=== PATIENT | male | born 1970 | race Hispanic/Latino ===

== ENCOUNTER 2019-09-07 05:54 | Emergency (ER) | payer OTHER ==
--- OUTSIDE RECORDS SUMMARY | 2019-09-07 05:55 | XMS REPORT ---
:1970 [facility] [address] [place] [address] Dr. Avalos [address] [place] [id number] Care Team Providers Name Role Phone Unavailable Unavailable Unavailable Problems This patient has no known problems. Allergies, Adverse Reactions, Alerts This patient has no known allergies or adverse reactions. Medications This patient has no known medications.
[2019-09-07] MEDS ORDERED: KETOROLAC 30 MG/ML INJ ONE (06:12)
[2019-09-07 06:18] LABS: Absolute Lymphocytes (CBC) 2.1 K/uL (0.7-4.9); Basophils % 0.5 % (0-1.3); Hematocrit 40.2 % (39.6-49.0); Lymphocytes % 27.4 % (15.3-44.8); MPV 7.6 fL (7.6-11.3); RBC Red Blood Cell Count 5.11 M/uL (4.33-5.43)
[2019-09-07 06:33] LABS: Protime INR 1.11
[2019-09-07 06:40] LABS: ALT/SGPT 32 U/L (12-78); AST/SGOT 20 U/L (15-37); Albumin 3.4 g/dL (3.4-5.0); Alkaline Phosphatase 103 U/L (45-117); BUN Blood Urea Nitrogen 24 mg/dL (7-18); Bicarbonate 25 mmol/L (21-32); Bilirubin Direct 0.2 mg/dL (0-0.2); Bilirubin Total 0.6 mg/dL (0.2-1.0); Glucose Level 107 mg/dL (74-106); Magnesium 2.2 mg/dL (1.8-2.4); NT PRO-BNP 17 pg/mL (<125); Potassium 3.8 mmol/L (3.5-5.1); Protein, Total 8.1 g/dL (6.4-8.2); Sodium Level 140 mmol/L (136-145); Troponin (Emerg Dept Use Only) < 0.02 ng/mL (0.0-0.045)
--- NOTE | 2019-09-07 06:51 | RAD REPORT ---
EXAM DESCRIPTION: RAD - Chest Single View - 09/07/2019 6:21 am CLINICAL HISTORY: CHEST PAIN Chest pain. COMPARISON: Chest Pa And Lat (2 Views) dated 06/05/2017; Chest Pa And Lat (2 Views) dated 01/16/2016 FINDINGS: Portable technique limits examination quality. The lungs are grossly clear. The heart is normal in size. No displaced fractures. IMPRESSION: No acute intrathoracic process suspected.
[2019-09-07] MEDS ORDERED: FENTANYL CITR 100 MCG/2 ML ONE (07:35)
--- NOTE | 2019-09-07 07:37 | ER ---
Nurse's Notes [facility] Name: Norman Craft Age: 49 yrs Sex: Male : 1970 Arrival Date: 09/07/2019 Time: 05:55 Bed 5 Private MD: Diagnosis: Chondrocostal junction syndrome [Tietze];Other chest pain Presentation: 09/07 05:55 Presenting complaint: Patient states: that since 2200 last night he has been having fc sharp chest pain that is constant. Denies any nausea, vomiting or shortness of breath. Pt states that pain is worse with movement and touching the area. Has seen DR Jones in the past 6 months and had a normal stress test. Transition of care: patient was not received from another setting of care. Onset of symptoms was September 06, 2019 at 22:00. Risk Assessment: Do you want to hurt yourself or someone else? Patient reports no desire to harm self or others. Initial Sepsis Screen: Does the patient meet any 2 criteria? No. Patient's initial sepsis screen is negative. Does the patient have a suspected source of infection? No. Patient's initial sepsis screen is negative. Care prior to arrival: None. 05:55 Method Of Arrival: Ambulatory 05:55 Acuity: ROSY 3 fc Historical: - Allergies: 06:09 No Known Allergies; fc - Home Meds: 06:09 Crestor 10 mg oral tab 1 tab every other day [Active]; fc - PMHx: 06:09 GERD; High Cholesterol; fc - PSHx: 06:09 Hernia repair; fc - Immunization history:: Last tetanus immunization: up to date Flu vaccine is up to date. - Coronavirus screen:: The patient has NOT traveled to [place], [place], or [place] in the past 14 days. Proceed with normal triage process as indicated. The patient has NOT had contact with known/suspected case of Coronavirus? Proceed with normal triage procedures. - Social history:: Smoking status: Patient denies any tobacco usage or history of. Patient uses alcohol, occasionally. Patient/guardian denies using street drugs. - Ebola Screening: : Patient negative for fever greater than or equal to 101.5 degrees Fahrenheit, and additional compatible Ebola Virus Disease symptoms Patient denies exposure to infectious person Patient denies travel to an Ebola-affected area in the 21 days before illness onset. Screenin:55 Abuse screen: Denies threats or abuse. Nutritional screening: No deficits noted. fc Tuberculosis screening: No symptoms or risk factors identified. Fall Risk None identified. Assessment: 06:00 General: Appears in no apparent distress. comfortable, Behavior is calm, cooperative, aa1 appropriate for age. Pain: Complains of pain in chest Pain does not radiate. Pain currently is 5 out of 10 on a pain scale. at worst was 10 out of 10 on a pain scale. Quality of pain is described as sharp, stabbing, Pain began 1 day ago. Is intermittent. Neuro: Level of Consciousness is awake, alert, obeys commands, Oriented to person, place, time, situation, Moves all extremities. Full function Speech is normal. Cardiovascular: Reports chest pain, Denies diaphoresis, nausea, palpitations, shortness of breath, Heart tones S1 S2 present Capillary refill < 3 seconds Clubbing of nail beds is absent JVD is absent Rhythm is regular. Respiratory: Reports pain with movement pain with respiration Airway is patent Respiratory effort is even, unlabored, Respiratory pattern is regular, symmetrical, Breath sounds are clear bilaterally. GI: No signs and/or symptoms were reported involving the gastrointestinal system. : No signs and/or symptoms were reported regarding the genitourinary system. EENT: No signs and/or symptoms were reported regarding the EENT system. Derm: Skin is intact, is healthy with good turgor, Skin is pink, warm \T\ dry. Musculoskeletal: Circulation, motion, and sensation intact. Capillary refill < 3 seconds. 06:52 Reassessment: Patient appears in no apparent distress at this time. Patient and/or aa1 family updated on plan of care and expected duration. Pain level reassessed. Patient is alert, oriented x 3, equal unlabored respirations, skin warm/dry/pink. Awaiting test results. Vital Signs: 05:55 BP 147 / 105; Pulse 89; Resp 18; Temp 97.0(TE); Pulse Ox 99% on R/A; Weight 77.11 kg fc (R); Height 5 ft. 7 in. (170.18 cm) (R); Pain 5/10; 06:52 BP 127 / 81; Pulse 76; Resp 16; Pulse Ox 98% on R/A; aa1 05:55 Body Mass Index 26.63 (77.11 kg, 170.18 cm) ED Course: 05:55 Patient arrived in ED. cl3 05:55 Arm band placed on Patient placed in an exam room, on a stretcher. fc 05:55 Patient has correct armband on for positive identification. Placed in gown. Bed in low fc position. Call light in reach. Side rails up X 1. rotoprinter on. Pulse ox on. NIBP on. 05:55 No provider procedures requiring assistance completed. 05:56 Steve Frankel PA is PHCP. jr8 05:56 Dilip Koroma MD is Attending Physician. jr8 06:06 Triage completed. fc 06:10 Initial lab(s) drawn, by me, sent to lab. EKG done, by ED staff, reviewed by Dilip Koroma MD. Inserted saline lock: 20 gauge in right antecubital area, using aseptic technique. Blood collected. Patient maintains SpO2 saturation greater than 95% on room air. 07:16 Basic Metabolic Panel Sent. sv 07:16 CBC with Diff Sent. sv 07:16 LFT's Sent. sv 07:16 Magnesium Sent. sv 07:17 NT PRO-BNP Sent. sv 07:17 PT-INR Sent. sv 07:17 Troponin (emerg Dept Use Only) Sent. sv 07:17 XRAY Chest (1 view) Sent. sv 07:36 Francis Pineda, RN is Primary Nurse. sg 08:00 IV discontinued, intact, bleeding controlled, No redness/swelling at site. Pressure sg dressing applied. Administered Medications: 06:12 Drug: TORadol 30 mg Route: IVP; Site: right antecubital; jd3 07:36 Drug: fentaNYL (PF) 50 mcg Route: IVP; Site: right antecubital; sg Outcome: 07:37 Discharge ordered by . jr8 08:00 Discharged to home ambulatory, with family. sg 08:00 Condition: good 08:00 Discharge instructions given to patient, Instructed on discharge instructions, follow up and referral plans. medication usage, safety practices, Demonstrated understanding of instructions, follow-up care, medications, Prescriptions given X 1. 08:08 Patient left the ED. sg Signatures: Roseline Moise RN RN Francis Pineda RN RN Lupis Leggett RN RN aa1 Siri Cortez RN RN fc Steve Frankel PA PA jr8 Ken Mar RN RN jd3 Joya Jaffe cl3
--- NOTE | 2019-09-07 07:38 | EDPHYS ---
Physician Documentation [facility] Name: Norman Craft Age: 49 yrs Sex: Male : 1970 Arrival Date: 09/07/2019 Time: 05:55 Bed 5 Private MD: ED Physician Dilip Koroma HPI: 09/07 06:18 This 49 yrs old Male presents to ER via Ambulatory with complaints of Chest jr8 Pain. 06:18 The patient or guardian reports chest pain that is located primarily in the anterior jr8 chest wall, left. Onset: acutely, last night, at 22:00. The pain does not radiate. Associated signs and symptoms: The patient has no apparent associated signs or symptoms. The chest pain is described as sharp, stabbing. Duration: The patient or guardian reports multiple episodes. Modifying factors: The symptoms are alleviated by remaining still, the symptoms are aggravated by movement. Severity of pain: At its worst the pain was moderate in the emergency department the pain is unchanged. The patient has not experienced similar symptoms in the past. The patient has not recently seen a physician. Denies trauma or heavy physical activity . Historical: - Allergies: 06:09 No Known Allergies; fc - Home Meds: 06:09 Crestor 10 mg oral tab 1 tab every other day [Active]; fc - PMHx: 06:09 GERD; High Cholesterol; fc - PSHx: 06:09 Hernia repair; fc - Immunization history:: Last tetanus immunization: up to date Flu vaccine is up to date. - Coronavirus screen:: The patient has NOT traveled to [place], [place], or [place] in the past 14 days. Proceed with normal triage process as indicated. The patient has NOT had contact with known/suspected case of Coronavirus? Proceed with normal triage procedures. - Social history:: Smoking status: Patient denies any tobacco usage or history of. Patient uses alcohol, occasionally. Patient/guardian denies using street drugs. - Ebola Screening: : Patient negative for fever greater than or equal to 101.5 degrees Fahrenheit, and additional compatible Ebola Virus Disease symptoms Patient denies exposure to infectious person Patient denies travel to an Ebola-affected area in the 21 days before illness onset. ROS: 06:18 Eyes: Negative for injury, pain, redness, and discharge, ENT: Negative for injury, jr8 pain, and discharge, Neck: Negative for injury, pain, and swelling, Respiratory: Negative for shortness of breath, cough, wheezing, and pleuritic chest pain, Abdomen/GI: Negative for abdominal pain, nausea, vomiting, diarrhea, and constipation, Back: Negative for injury and pain, MS/Extremity: Negative for injury and deformity, Skin: Negative for injury, rash, and discoloration, Neuro: Negative for headache, weakness, numbness, tingling, and seizure. 06:18 Cardiovascular: Positive for chest pain, with movement, Negative for edema, orthopnea, palpitations, paroxysmal nocturnal dyspnea. Exam: 06:18 Eyes: Pupils equal round and reactive to light, extra-ocular motions intact. Lids and jr8 lashes normal. Conjunctiva and sclera are non-icteric and not injected. Cornea within normal limits. Periorbital areas with no swelling, redness, or edema. ENT: Nares patent. No nasal discharge, no septal abnormalities noted. Tympanic membranes are normal and external auditory canals are clear. Oropharynx with no redness, swelling, or masses, exudates, or evidence of obstruction, uvula midline. Mucous membranes moist. Neck: Trachea midline, no thyromegaly or masses palpated, and no cervical lymphadenopathy. Supple, full range of motion without nuchal rigidity, or vertebral point tenderness. No Meningismus. Cardiovascular: Regular rate and rhythm with a normal S1 and S2. No gallops, murmurs, or rubs. Normal PMI, no JVD. No pulse deficits. Respiratory: Lungs have equal breath sounds bilaterally, clear to auscultation and percussion. No rales, rhonchi or wheezes noted. No increased work of breathing, no retractions or nasal flaring. Abdomen/GI: Soft, non-tender, with normal bowel sounds. No distension or tympany. No guarding or rebound. No evidence of tenderness throughout. Back: No spinal tenderness. No costovertebral tenderness. Full range of motion. Skin: Warm, dry with normal turgor. Normal color with no rashes, no lesions, and no evidence of cellulitis. MS/ Extremity: Pulses equal, no cyanosis. Neurovascular intact. Full, normal range of motion. Neuro: Awake and alert, GCS 15, oriented to person, place, time, and situation. Cranial nerves II-XII grossly intact. Motor strength 5/5 in all extremities. Sensory grossly intact. Cerebellar exam normal. Normal gait. 06:18 Chest/axilla: Inspection: normal, Palpation: tenderness, that is moderate, of the left sternal border , that partially reproduces the patient's complaints. 06:18 ECG was reviewed by the Attending Physician. jr8 Vital Signs: 05:55 BP 147 / 105; Pulse 89; Resp 18; Temp 97.0(TE); Pulse Ox 99% on R/A; Weight 77.11 kg fc (R); Height 5 ft. 7 in. (170.18 cm) (R); Pain 5/10; 06:52 BP 127 / 81; Pulse 76; Resp 16; Pulse Ox 98% on R/A; aa1 05:55 Body Mass Index 26.63 (77.11 kg, 170.18 cm) fc MDM: 05:56 Patient medically screened. 8 07:33 Differential diagnosis: abnormal EKG, acute myocardial infarction, acute pericarditis, jr8 coronary artery disease chest wall pain, cholecystitis, Cholelithiasis costochondritis, esophagitis, gastritis, gastroesophageal reflux disease (GERD), myocarditis, pancreatitis, peptic ulcer disease, pleurisy, pneumonia, pneumothorax, pulmonary embolus, stable angina, thoracic aortic disection, unstable angina, [place]. Data reviewed: vital signs, nurses notes, lab test result(s), EKG, radiologic studies, plain films. Data interpreted: Pulse oximetry: on room air is 98 %. Interpretation: normal. Counseling: I had a detailed discussion with the patient and/or guardian regarding: the historical points, exam findings, and any diagnostic results supporting the discharge/admit diagnosis, lab results, radiology results. ED course: Patient had stress test 5 months ago and was cleared by cardiology for next 5 years. Pain with motion and palpation to left sternal region. Labs and imaging unremarkable. Most likely inflammatory in origin at this time. Will put on NSAID based product and see how he does. Knows to come back if worse or if something were to change . 09/07 06:04 Order name: Basic Metabolic Panel [facility] 09/07 06:04 Order name: CBC with Diff 8 09/07 06:04 Order name: LFT's [facility] 09/07 06:04 Order name: Magnesium [facility] 09/07 06:04 Order name: NT PRO-BNP 09/07 06:04 Order name: PT-INR 09/07 06:04 Order name: Troponin (emerg Dept Use Only) 09/07 06:21 Order name: CBC with Automated Diff; Complete Time: 06:24 EDMS 09/07 06:39 Order name: Protime (+INR); Complete Time: 07:00 EDMS 09/07 06:41 Order name: Basic Metabolic Panel; Complete Time: 07:00 EDMS 09/07 06:41 Order name: Liver (Hepatic) Function; Complete Time: 07:00 EDMS 09/07 06:41 Order name: Troponin (Emerg Dept Use Only); Complete Time: 07:00 EDMS 09/07 06:41 Order name: NT PRO-BNP; Complete Time: 07:00 EDMS 09/07 06:41 Order name: Magnesium; Complete Time: 07:00 EDMS 09/07 06:04 Order name: XRAY Chest (1 view) 09/07 06:04 Order name: EKG; Complete Time: 06:05 09/07 06:04 Order name: Cardiac monitoring; Complete Time: 06:07 09/07 06:04 Order name: EKG - Nurse/Tech; Complete Time: 06:07 09/07 06:04 Order name: IV Saline Lock; Complete Time: 06:07 09/07 06:04 Order name: Labs collected and sent; Complete Time: 06:07 09/07 06:04 Order name: O2 Per Protocol; Complete Time: 06:07 09/07 06:04 Order name: O2 Sat Monitoring; Complete Time: 06:07 09/07 06:52 Order name: RAD; Complete Time: 07:00 EDMS EC:18 Rate is 85 beats/min. Rhythm is regular, Normal Sinus Rhythm. QRS [place] is Normal. [place] jr8 interval is prolonged at 220 msec. QRS interval is normal at 74 msec. QT interval is normal at 426 msec. No Q waves. T waves are Normal. No ST changes noted. Clinical impression: 1st degree heart block. Interpreted by me. Reviewed by me. Administered Medications: 06:12 Drug: TORadol 30 mg Route: IVP; Site: right antecubital; jd3 07:36 Drug: fentaNYL (PF) 50 mcg Route: IVP; Site: right antecubital; sg Disposition: 10:18 Co-signature as Attending Physician, Dilip Koroma MD I agree with the assessment and tw4 plan of care. Disposition: 09/07/19 07:37 Discharged to Home. Impression: Chondrocostal junction syndrome [Tietze], Other chest pain. - Condition is Stable. - Discharge Instructions: Nonspecific Chest Pain, Chest Wall Pain, Costochondritis. - Prescriptions for Ibuprofen 800 mg Oral Tablet - take 1 tablet by ORAL route every 12 hours As needed take with food; 20 tablet. - Work release form, Medication Reconciliation Form, Thank You Letter, Antibiotic Education, Prescription Opioid Use form. - Follow up: Private Physician; When: 5 - 6 days; Reason: Recheck today's complaints, Continuance of care, Re-evaluation by your physician. - Problem is new. - Symptoms have improved. - Notes: Take pepcid daily or prescribed GERD medication with Ibuprofen Signatures: Dispatcher [employer] EDMS Francis Pineda RN RN Siri Cortez RN RN fc Roszak, Josh, PA PA jr8 Ken Mar RN RN jd3 Wadley, Terrence, MD MD tw4 Corrections: (The following items were deleted from the chart) 08:08 07:37 09/07/2019 07:37 Discharged to Home. Impression: Chondrocostal junction syndrome sg [Tietze]; Other chest pain. Condition is Stable. Forms are Medication Reconciliation Form, Thank You Letter, Antibiotic Education, Prescription Opioid Use. Follow up: Private Physician; When: 5 - 6 days; Reason: Recheck today's complaints, Continuance of care, Re-evaluation by your physician. Problem is new. Symptoms have improved. jr8
--- NOTE | 2019-09-07 08:45 | EKG ---
Test Date: 2019-09-07 Test Time: 06:06:34 Senior Care Manager: TOSIN MEASUREMENT RESULTS: Intervals: Rate: 85 UT: 220 QRSD: 74 QT: 358 QTc: 426 [place]: P: 56 UT: 220 QRS: 60 T: 44 INTERPRETIVE STATEMENTS: Sinus rhythm with 1st degree AV block Otherwise normal ECG Compared to ECG 05/03/2004 08:58:00 No significant changes Electronically Signed On 09-07-19 08:44:55 SENIOR SYSTEMS ENGINEER by Heraclio Osborn
[2019-09-09 03:19] VITALS: TEMP 97
[2019-09-09 03:25] VITALS: BP 127/81; O2SAT 98
== END 2019-09-07 08:08 | disposition home or self-care (01) ==
LOC: ER 05:54
DX: M94.0 Chondrocostal junction syndrome [Tietze] (principal); E78.00 Pure hypercholesterolemia, unspecified
CPT/HCPCS: 93005; 85025; 80048; 36415; 83735; 85610; 80076; 84484; 83880; 71045; 96375; 96374; 99285; J3010

== ENCOUNTER 2024-01-15 07:44 | Observation (INO) | payer OTHER ==
--- OUTSIDE RECORDS SUMMARY | 2024-01-15 07:48 | XMS REPORT | Clinical Summary ---
Author Name Unknown Organization [facility] Address [address] [place] [address] Care Team Providers Care Principal Solutions Architect Name Role Phone Kendall Orantes Rp, MD Primary Care Provider [phone] Nicole Louis MD Unavailable [phone] Enrique Connolly MD Unavailable [phone] Tanesha Silveira MD Unavailable [phone] Sayda Pritchett MD Unavailable Allergies No known active allergies Medications Medication Sig Dispensed Refills Start Date End Date Status multivitamin (THERAGRAN) tablet Take 1 tablet by mouth daily. Active omeprazole (PriLOSEC) 20 mg capsule Take 1 capsule (20 mg) by mouth daily. Active rosuvastatin (CRESTOR) 10 mg tablet Take 1 tablet (10 mg) by mouth daily. Active difluprednate 0.05 % eye drop 3 (three) times a day. 10/17/2022 12/25/2023 Discontinued tobramycin-dexAME THasone (TOBRADEX) 0.3%-0.1% ophthalmic suspension Administer 1 drop to the right eye 4 (four) times a day. 03/08/2023 12/25/2023 Discontinued Active Problems Problem Noted Date Diagnosed Date Monoclonal gammopathy 10/01/2018 Encounters Date Type Department Care Team Description 12/25/2023 3:20 PM CDT Follow-Up [facility] - Genitourinary Oncology [address] [place], [place] [id number] Kendall Orantes Rp, MD Monoclonal gammopathy 12/25/2023 Travel 05/07/2023 Orders Only MD [facility] [place] [address] [place] [address] Radha Khan APRN Monoclonal gammopathy (Primary Dx) 05/06/2023 11:00 AM CDT Follow-Up MD [place] - Genitourinary Oncology [address] [place] [address] Kendall Orantes Rp, MD Fatigue (Primary Dx); Monoclonal gammopathy 05/06/2023 Travel after 01/15/2023 Surgical History Surgery Date Site/Laterality Comments COLONOSCOPY 03/29/2022 HERNIA REPAIR 07/28/2003 - 07/27/2004 UPPER GASTROINTESTINAL ENDOSCOPY 03/29/2022 Medical History Medical History Date Comments Hyperlipidemia 2018 Renal stone 2017 Family History Medical History Relation Name Comments Heart attack Father Breast cancer Paternal Aunt Relation Name Status Comments Father Mother Alive Paternal Aunt Social History Tobacco Use Types Packs/Day Years Used Date Smoking Tobacco: Never Smokeless Tobacco: Never Comments:pt smokes cigar 1 e very 6 months. Alcohol Use Standard Drinks/Week Comments Yes 12 (1 standard drink = 0.6 oz pu re alcohol) drinks once a week maybe Sex and Gender Information Value Date Recorded Sex Assigned at Male 01/04/2019 12:23 PM CDT Gender Identity Male 01/04/2019 12:23 PM CDT Sexual Orientation Straight 01/04/2019 12 :23 PM CDT Job Start Date Occupation Industry Not on file Not on file Not on file Obstetrics History Last Filed Vital Signs Vital Sign Reading Time Taken Comments Blood Pressure 150/75 12/25/2023 2:25 PM CDT Pulse 63 12/25/2023 2:25 PM CDT Temperature 36.7 C (98.1 F) 12/25/2023 2:25 PM CD T Respiratory Rate 18 12/25/2023 2:25 PM CDT Oxygen Saturation 99% 12/25/2023 2:25 PM CDT Inhaled Oxygen Concentration - - Weight 78.7 kg (173 lb 8 oz) 12/25/2023 2:25 PM CDT Height 167 cm (5' 5.75") 12/25/2023 2:26 PM CDT Body Mass Index 28.22 12/25/2023 2:25 PM CDT Plan of Treatment Upcoming Encounters Date Type Department Care Team (Late st Contact Info) Description 06/29/2024 10:30 AM PHILOSOPHY INSTRUCTOR Lab MD [place] [facility] [address] [facility] [address] [place] [address] Radha Khan, MIDDLE SCHOOL COUNSELOR [address] [place] [address] [email or web address] 06/29/2024 11:40 AM PHILOSOPHY INSTRUCTOR Follow-Up MD [place] - Genitourinary Oncology [address] [place] [address] Kendall Orantes Rp, MD [address] [place] [address] [email or web address] Health Maintenance Due Date Last Done Comments COVID-19 Vaccine ( season) 2023 Influenza Vaccine 03/28/2024 04/30/2019 Procedures Procedure Name Priority Date/Time Associated Diagnosis Comments FREE KAPPA/FREE LAMBDA RATIO Routine 12/25/2023 1:40 PM CDT Monoclonal gammopathy HEMOGLOBIN A1C Add-On 12/25/2023 1:40 PM CDT Monoclonal gammopathy TRANSFERRIN Add-On 12/25/2023 1:40 PM CDT Monoclonal gammopathy THYROID STIMULATING HORMONE Add-On 12/25/2023 1:40 PM CDT Monoclonal gammopathy PROSTATE SPECIFIC ANTIGEN Add-On 12/25/2023 1:40 PM CDT Monoclonal gammopathy LIPID PANEL Add-On 12/25/2023 1:40 PM CDT Monoclonal gammopathy FERRITIN Add-On 12/25/2023 1:40 PM CDT Monoclonal gammopathy FREE THYROXINE Add-On 12/25/2023 1:40 PM CDT Monoclonal gammopathy IMMUNOFIXATION ELECTROPHORESIS Routine 12/25/2023 1:40 PM CDT Monoclonal gammopathy PROTEIN ELECTROPHORESIS Routine 12/25/19 1:40 PM CDT Monoclonal gammopathy .CBC Routine 12/25/2023 1:40 PM CDT Monoclonal gammopathy IMMUNOGLOBULIN M Routine 12/25/2023 1:40 PM CDT Monoclonal gammopathy SERUM PROTEIN ELECTROPHORESIS WITH MICHEAL Routine 12/25/2023 1:40 PM CDT Monoclonal gammopathy IMMUNOGLOBULIN A Routine 12/25/2023 1:40 PM CDT Monoclonal gammopathy IGG SUBCLASSES Routine 12/25/2023 1:40 PM CDT Monoclonal gammopathy FREE LAMBDA LIGHT CHAIN Routine 12/25/19 1:40 PM CDT Monoclonal gammopathy FREE KAPPA LIGHT CHAIN Routine 1:40 PM CDT Monoclonal gammopathy BETA 2 MICROGLOBULIN Routine 12/25/2023 1:40 PM CDT Monoclonal gammopathy COMPREHENSIVE METABOLIC PANEL Routine 12/25/2023 1:40 PM CDT Monoclonal gammopathy COMPLETE BLOOD COUNT W/ DIFFERENTIAL Routine 12/25/2023 1:40 PM CDT Monoclonal gammopathy GENERAL LABORATORY ADD ON TEST STAT 05/06/2023 11:00 AM CDT Monoclonal gammopathy Fatigue DR. CHAU PROT ELECTROPHORESIS PATH REVIEW Routine 05/06/2023 10:[address] CHAU MICHEAL PATHE REVIEW Routine 05/06/20 10:12 AM CDT FREE KAPPA/FREE LAMBDA RATIO Routine 05/06/2023 10:12 AM CDT FREE THYROXINE Routine 05/06/2023 10:12 AM CDT THYROID STIMULATING HORMONE Routine 05/06/2023 10:12 AM CDT FERRITIN Routine 05/06/2023 10:12 AM CDT FRACTIONATED BILIRUBIN Routine 10:12 AM CDT Monoclonal gammopathy TOTAL PROTEIN Routine 05/06/2023 10:12 AM CDT Monoclonal gammopathy ASPARTATE AMINOTRANSFERASE Routine 05/06/2023 10:12 AM CDT Monoclonal gammopathy ALANINE AMINOTRANSFERASE Routine 023 10:12 AM CDT Monoclonal gammopathy ALKALINE PHOSPHATASE Routine 05/06/2023 10:12 AM CDT Monoclonal gammopathy ALBUMIN LEVEL Routine 05/06/2023 10:12 AM CDT Monoclonal gammopathy CALCIUM LEVEL Routine 05/06/2023 10:12 AM CDT Monoclonal gammopathy .GLOMERULAR FILTRATION RATE Routine 05/06/2023 10:12 AM CDT Monoclonal gammopathy SERUM CREATININE Routine 05/06/2023 10:1 2 AM CDT Monoclonal gammopathy ELECTROLYTE PANEL Routine 05/06/2023 10: 12 AM CDT Monoclonal gammopathy BLOOD UREA NITROGEN Routine 05/06/2023 1 0:12 AM CDT Monoclonal gammopathy GLUCOSE LEVEL Routine 05/06/2023 10:12 AM CDT Monoclonal gammopathy DIFFERENTIAL Routine 05/06/2023 10:12 AM CDT Monoclonal gammopathy .CBC Routine 05/06/2023 10:12 AM CDT Monoclonal gammopathy PROTEIN ELECTROPHORESIS Routine 05/06/20 10:12 AM CDT Monoclonal gammopathy SERUM PROTEIN ELECTROPHORESIS WITH MICHEAL Routine 05/06/2023 10:12 AM CDT Monoclonal gammopathy FREE KAPPA LIGHT CHAIN Routine 10:12 AM CDT Monoclonal gammopathy FREE LAMBDA LIGHT CHAIN Routine 05/06/20 10:12 AM CDT Monoclonal gammopathy BETA 2 MICROGLOBULIN Routine 05/06/2023 10:12 AM CDT Monoclonal gammopathy LACTATE DEHYDROGENASE Routine 05/06/2023 10:12 AM CDT Monoclonal gammopathy COMPREHENSIVE METABOLIC PANEL Routine 05/06/2023 10:12 AM CDT Monoclonal gammopathy COMPLETE BLOOD COUNT W/ DIFFERENTIAL Routine 05/06/2023 10:12 AM CDT Monoclonal gammopathy after 01/15/2023 Results * MICHEAL (12/25/2023 1:40 PM CDT) Serum Immunofixation 12/29/2023 4:57 PM CDT [facility] MICHEAL Path Interp The follow-up serum protein immunofixation electrophoretic patterns obtained with the use of antisera against IgG, IgA, IgM, bound kappa and bound lambda light chains are positive for an IgG kappa monoclonal gammopathy. 12/29/2023 4:57 PM CDT [facility] Pathologist Signature . 12/29/2023 4:57 PM CDT [facility] Blood Venipuncture / Unknown 12/25/2023 1:40 PM CDT 12/25/2023 1:48 PM CDT Radha Khan APRN LAB BLOOD ORDERABLES [facility] Unless otherwise noted, all lab tests performed by: Division of Pathology and Laboratory Medicine [address] [place] [phone] * (ABNORMAL) Serum Protein Electrophoresis (12/25/2023 1:40 PM CDT) Albumin 4.1 3.6 - 5.4 gm/dL 12/29/2023 4:55 PM CDT [facility] Alpha 1 Globulin 0.3 0.2 - 0.4 gm/dL 12/29/2023 4:55 PM CDT [facility] Alpha 2 Globulin 0.9 0.5 - 1.0 gm/dL 12/29/2023 4:55 PM CDT [facility] Beta Globulin 0.9 0.5 - 1.1 gm/dL 12/29/2023 4:55 PM CDT [facility] Gamma Globulin 1.7(H) 0.7 - 1.6 gm/dL 12/29/2023 4:55 PM CDT [facility] Paraprotein1 0.7(H) 0.0 - 0.0 gm/dL 12/29/2023 4:55 PM CDT [facility] SPE Path Interp The follow-up serum protein electrophoretic pattern shows that the M-protein peak is still present. 12/29/2023 4:55 PM CDT [facility] Pathologist Signature . 12/29/2023 4:55 PM CDT [facility] Total Protein 7.9 6.4 - 8.3 gm/dL 12/29/2023 4:55 PM CDT [facility] Blood Venipuncture / Unknown 12/25/2023 1:40 PM CDT 12/25/2023 1:48 PM CDT Radha Khan APRN LAB BLOOD ORDERABLES [facility] Unless otherwise noted, all lab tests performed by: Division of Pathology and Laboratory Medicine [facility] [place] [address] * (ABNORMAL) .CBC (12/25/2023 1:40 PM T) Only the most recent of2 resultswithin the time period is included. White Blood Cell 7.8 4.1 - 10.5 K/uL 12/25/2023 1:53 PM [facility] Red Blood Cell 5.16 4.30 - 6.04 M/uL 12/25/2023 1:53 PM [facility] Hemoglobin 13.6 13.3 - 17.4 g/dL 12/25/2023 1:53 PM [facility] Hematocrit 41.8 39.5 - 51.8 % 12/25/2023 1:53 PM [facility] Mean Cell Volume 81(L) 82 - 99 fL 12/25/2023 1:53 PM [facility] Mean Cell Hemoglobin 26.4(L) 26.6 - 33.2 pg 12/25/2023 1:53 PM [facility] Mean Cell Hemoglobin Concentration 32.5 31.1 - 35.2 g/dL 12/25/2023 1:53 PM [facility] RDW-SD 41.8 37.5 - 49.7 fL 12/25/2023 1:53 PM [facility] Red Cell Diameter Width 14.3 11.6 - 15.5 % 12/25/2023 1:53 PM [facility] Platelet 288 160 - 397 K/uL 12/25/2023 1:53 PM [facility] Mean Platelet Volume 9.4 9.1 - 12.6 fL 12/25/2023 1:53 PM [facility] Neutrophil % 67.7 43.2 - 72.7 % 12/25/2023 1:53 PM [facility] Lymphocyte % 24.1 16.8 - 46.2 % 12/25/2023 1:53 PM [facility] Monocyte % 6.1 5.1 - 12.5 % 12/25/2023 1:53 PM [facility] Eosinophil % 1.5 0.4 - 6.3 % 12/25/2023 1:53 PM [facility] Basophil % 0.5 0.2 - 1.4 % 12/25/2023 1:53 PM CDT [facility] IGRE % 0.1 0.1 - 1.5 % 12/25/2023 1:53 PM CDT [facility] Comment:The IGRE% includes M etamyelocytes, Myelocytes and Promyelocytes. Neutrophil Abs 5.28 1.95 - 7.25 K/uL 12/25/2023 1:53 PM CDT [facility] Lymphocyte Abs 1.88 1.01 - 3.24 K/uL 12/25/2023 1:53 PM CDT [facility] Monocyte Abs 0.48 0.24 - 0.85 K/uL 12/25/2023 1:53 PM CDT [facility] Eosinophil Abs 0.12 0.02 - 0.50 K/uL 12/25/2023 1:53 PM CDT [facility] Basophil Abs 0.04 0.02 - 0.09 K/uL 12/25/2023 1:53 PM CDT [facility] IG Abs 0.01 0.01 - 0.12 K/uL 12/25/2023 1:53 PM CDT [facility] Blood Venipuncture / Unknown 12/25/2023 1:40 PM CDT 12/25/2023 1:48 PM CDT Radha Khan APRN LAB BLOOD ORDERABLES Performing Organization Address [facility]/State/ZIP Co de Phone Number [facility] [address] [facility], [facility] [address] [place] [address] * (ABNORMAL) Free Franklin/Free Lambda Ratio (12/25/2023 1:40 PM CDT) Only the most recent of2 resultswithin the time period is included. Free Franklin/ Free Lambda Ratio 4.74(H) 0.26 - 1.65 12/26/2023 10:11 AM CDT [facility] Blood Peripheral blood specimen / Unknown Venipuncture / Unknown 12/25/2023 1:40 PM CDT 12/25/2023 1:48 PM CDT Radha Khan MIDDLE SCHOOL COUNSELOR LAB BLOOD ORDERABLES [facility] Unless otherwise noted, all lab tests performed by: Division of Pathology and Laboratory Medicine [address] [place] [id number] * IgG Subclasses (12/25/2023 1:40 PM CDT) IgG Total-Wren 1519 767 - 1590 mg/dL 12/29/2023 9:13 AM CDT [facility] IgG1-Wren 891 341 - 894 mg/dL 12/29/2023 9:13 AM CDT [facility] IgG2-Wren 375 171 - 632 mg/dL 12/29/2023 9:13 AM CDT [facility] IgG3-Wren 52.4 18.4 - 106.0 mg/dL 12/29/2023 9:13 AM CDT [facility] IgG4-Wren 15.9 2.4 - 121.0 mg/dL 12/29/2023 9:13 AM CDT [facility] Comment: Test Performed by: [facility] [address] [place] [address] Tow Motor Operator: Musa Kramer M.D. Ph.D.; CLIA# [id number] Blood Venipuncture / Unknown 12/25/2023 1:40 PM CDT 12/25/2023 1:48 PM CDT Radha Khan MIDDLE SCHOOL COUNSELOR LAB BLOOD ORDERABLES [facility] * Comprehensive Metabolic Panel (12/25/2023 1:40 PM CDT) Pathologist [facility] Bilirubin Total 0.6 0.0 - 1.2 mg/dL 12/25/2023 2:23 PM CDT [facility] Comment:Indocyanine Green (I CG) may cause falsely elevated bilirubin results. Total and direct bilirubin must not be measured from samples containing indocyanine green. False elevation of total bilirubin can be seen in patients with IgG concentrations above 28 g/L. eGFR 99 >=60 mL/min/1.7 3 sq. m 12/25/2023 2:23 PM [facility] Comment: The eGFRcr is calculated with the 2020 CKD-EPI creatinine equation using creatinine, patient's age, and sex for adults 18 years of age and older. Other factors, especially muscle mass, may affect accuracy and need to be considered. According to the Kidney Disease: Improving Global Outcomes (KDIGO) CKD Work Group 2012 Clinical Practice Guideline, chronic kidney disease (CKD) is defined as the abnormalities of kidney structure or function, present for more than 3 months, with implications for health. CKD should be classified by cause, GFR category, and albuminuria category. KDIGO guidelines provide the following GFR categories. Stage / Description / GFR mL/min/1.73 m2: G1* / Normal or high / >= 90 G2* / Mildly decreased / 60-89 G3a / Mildly to moderately decreased / 45-59 G3b / Moderately to severely decreased / 30-44 G4 / Severely decreased / 15-29 G5 / Kidney failure / <15 *In the absence of evidence of kidney damage, neither G1 nor G2 fulfill criteria for CKD. Tot Protein 7.9 6.4 - 8.3 gm/dL 12/25/2023 2:23 PM [facility] Calcium Level Total 9.5 8.2 - 10.2 mg/dL 12/25/2023 2:23 PM [facility] Alkaline Phosphatase 116 40 - 129 U/L 12/25/2023 2:23 PM [facility] Albumin Level 4.2 3.5 - 5.2 gm/dL 12/25/2023 2:23 PM [facility] AST 23 <=40 U/L 12/25/2023 2:23 PM [facility] ALT 21 <=41 U/L 12/25/2023 2:23 PM [facility] Sodium Level 138 136 - 145 mmol/L 12/25/2023 2:23 PM [facility] Potassium Level 4.1 3.4 - 4.5 mmol/L 12/25/2023 2:23 PM [facility] Chloride 101 98 - 107 mmol/L 12/25/2023 2:23 PM [facility] CO2 25 22 - 29 mmol/L 12/25/2023 2:23 PM [facility] Anion Gap 12 4 - 14 mmol/L 12/25/2023 2:23 PM CDT [facility] Creatinine 0.92 0.67 - 1.17 mg/dL 12/25/2023 2:23 PM CDT [facility] BUN 19 6 - 23 mg/dL 12/25/2023 2:23 PM CDT [facility] Glucose Level 90 70 - 99 mg/dL 12/25/2023 2:23 PM CDT [facility] Comment: Effective 02/21/16, the glucose reference intervals have been updated based on [place] Diabetes [employer] guidelines (Standards of Medical Care in Diabetes 2016. Diabetes Care 2016; 39: S13-S22). Fasting blood glucose: Normal: 70-99 mg/dL Impaired fasting glucose (increased risk for diabetes or pre-diabetes): 100-125 mg/dL Diabetes mellitus: >/=126 mg/dL Random blood glucose: Normal: 70-199 mg/dL Note: Random glucose >100 mg/dL is associated with increased risk for diabetes. Blood Venipuncture / Unknown 12/25/2023 1:40 PM CDT 12/25/2023 1:48 PM CDT Radha Khan APRN LAB BLOOD ORDERABLES [facility] [address] [address] [place] [address] * Free Lambda Light Chain (12/25/2023 1:40 PM CDT) Only the most recent of2 resultswithin the time period is included. Free Lambda Light chain 11.51 5.71 - 26.30 mg/L 12/26/2023 10:11 AM CDT [facility] Blood Venipuncture / Unknown 12/25/2023 1:40 PM CDT 12/25/2023 1:48 PM CDT Radha Khan APRN LAB BLOOD ORDERABLES [facility] Unless otherwise noted, all lab tests performed by: Division of Pathology and Laboratory Medicine [address] [place] [id number] * (ABNORMAL) Free Franklin Light Chain (12/25/2023 1:40 PM CDT) Only the most recent of2 resultswithin the time period is included. Free Franklin Light 54.55(H) 3.30 - 19.40 mg/L 12/26/2023 10:11 AM CDT [facility] Blood Venipuncture / Unknown 12/25/2023 1:40 PM CDT 12/25/2023 1:48 PM CDT Radha Khan APRN LAB BLOOD ORDERABLES [facility] Unless otherwise noted, all lab tests performed by: Division of Pathology and Laboratory Medicine [address] [place] [id number] * Transferrin with TIBC (12/25/2023 1:40 PM CDT) Transferrin 235 200 - 360 mg/dL 12/25/2023 3:06 PM CDT [facility] Total Iron Binding Capacity 329 250 - 450 mcg/dL 12/25/2023 3:06 PM CDT [facility] Blood Venipuncture / Unknown 12/25/2023 1:40 PM CDT 12/25/2023 1:48 PM CDT Radha Khan APRN LAB BLOOD ORDERABLES [facility] [address] [facility], [facility] [address] [place] [address] * TSH (12/25/2023 1:40 PM CDT) Only the most recent of2 resultswithin the time period is included. Thyroid Stimulating Hormone 1.88 0.27 - 4.20 mcunit/mL 12/25/2023 3:12 PM CDT [facility] Blood Venipuncture / Unknown 12/25/2023 1:40 PM CDT 12/25/2023 1:48 PM CDT Radha Khan MIDDLE SCHOOL COUNSELOR LAB BLOOD ORDERABLES Performing Organization Address City/[facility]/ZIP Co de Phone Number [address], [address] [address] * Free T4 (12/25/2023 1:40 PM CDT) Only the most recent of2 resultswithin the time period is included. T4 (Thyroxine) Free 1.08 0.93 - 1.70 ng/dL 12/25/2023 3:12 PM CDT [facility] Blood Venipuncture / Unknown 12/25/2023 1:40 PM CDT 12/25/2023 1:48 PM CDT Radha Khan MIDDLE SCHOOL COUNSELOR LAB BLOOD ORDERABLES Performing Organization Address City/[facility] Co de Phone Number [address], [facility] [phone] [place] [phone] * Prostate Specific Antigen (PSA) Diagnostic (12/25/2023 1:40 PM CDT) Prostate Specific Antigen 0.8 0.0 - 4.0 ng/mL 12/25/2023 3:12 PM CDT [facility] PSA Indication Diagnostic 12/25/2023 3:12 PM CDT [facility] Blood Venipuncture / Unknown 12/25/2023 1:40 PM CDT 12/25/2023 1:48 PM CDT Narrative [facility] - 12/25/2023 3:12 PM CDT "Reference range established based on adult population Results greater than 4519 ng/mL may not be reliable due to matrix effect with extended dilution as it exceeds the hide stretcher hand's recommended limit. Caution should be exercised when interpreting such values and done in conjunction with clinical context. Radha Khan MIDDLE SCHOOL COUNSELOR LAB BLOOD ORDERABLES Performing Organization Address City/[facility]/ZIP Co de Phone Number [address], [facility] [phone] [place] [phone] * (ABNORMAL) Hemoglobin A1c (12/25/2023 1:40 PM CDT) [facility] Hemoglobin A1c 5.9(H) 4.3 - 5.6 % 12/25/2023 3:01 PM CDT [facility] Blood Venipuncture / Unknown 12/25/2023 1:40 PM CDT 12/25/2023 1:48 PM CDT [facility] - 12/25/2023 3:01 PM CDT HbA1c values >=6.5% are diagnostic of diabetes mellitus. Diagnosis should be confirmed by repeat testing. Therapeutic Action suggested: >8.0% HbA1c; Goal of therapy: <7.0% HbA1c Radha Khan APRN LAB BLOOD ORDERABLES [facility] [address] [facility], [facility] [address] [place] [address] * IgA (12/25/2023 1:40 PM CDT) [facility] IgA 314.0 85.0 - 499.0 mg/dL 12/26/2023 10:11 AM CDT [facility] Blood Venipuncture / Unknown 12/25/2023 1:40 PM CDT 12/25/2023 1:48 PM CDT Radha Khan APRN LAB BLOOD ORDERABLES [facility] Unless otherwise noted, all lab tests performed by: Division of Pathology and Laboratory Medicine [address] [place] [id number] * IgM (12/25/2023 1:40 PM CDT) Pathologist [facility] IgM 60.0 35.0 - 242.0 mg/dL 12/26/2023 10:11 AM CDT [facility] Blood Venipuncture / Unknown 12/25/2023 1:40 PM CDT 12/25/2023 1:48 PM CDT Radha Khan APRN LAB BLOOD ORDERABLES [facility] Unless otherwise noted, all lab tests performed by: Division of Pathology and Laboratory Medicine [address] [place] [id number] * Ferritin (12/25/2023 1:40 PM CDT) Only the most recent of2 resultswithin the time period is included. Ferritin Level 181 30 - 400 ng/mL 12/25/2023 3:12 PM CDT [facility] Blood Venipuncture / Unknown 12/25/2023 1:40 PM CDT 12/25/2023 1:48 PM CDT Narrative [facility] - 12/25/2023 3:12 PM CDT Reference range established for age 20 - 60 years Radha Khan APRN LAB BLOOD ORDERABLES Performing Organization Address [facility] Co de Phone Number [facility] [address] [facility], [facility] [address] [place] [address] * Beta 2 Microglobulin (12/25/2023 1:40 PM CDT) Only the most recent of2 resultswithin the time period is included. Beta 2 Microglobulin 2.10 0.80 - 2.30 mg/L 12/26/2023 10:11 AM CDT [facility] Blood Venipuncture / Unknown 12/25/2023 1:40 PM CDT 12/25/2023 1:48 PM CDT Narrative [facility] - 12/26/2023 10:11 AM CDT This test is measured by turbidimetric methodology on The Binding Site Optilite analyzer. Results obtained in different methods are not interchangeable. Radha Khan APRN LAB BLOOD ORDERABLES [facility] Unless otherwise noted, all lab tests performed by: Division of Pathology and Laboratory Medicine [address] [place] [id number] * (ABNORMAL) Lipid Panel (12/25/2023 1:40 PM CDT) Cholesterol Total 190 <=199 mg/dL 12/25/2023 3:06 PM T [facility] Comment: ATP III Classification of Total Cholesterol - Primary Target of Therapy (in mg/dL): <200 Desirable 200-239 Borderline high >=240 High Triglyceride 179(H) <=149 mg/dL 12/25/2023 3:06 PM T [facility] Comment: ATP III Classification of Serum Triglycerides Primary Target of Therapy (in mg/dL): <150 Normal 150-199 Borderline high 200-499 High >=500 Very high Non-fasting triglycerides >200 mg/dL may be followed up with a fasting Lipid Panel. Calculated LDL-C may be falsely decreased when non-fasting triglycerides >200 mg/dL. HDL Cholesterol 41 >=40 mg/dL 12/25/2023 3:06 PM T [facility] LDL Cholesterol 113(H) <=100 mg/dL 12/25/2023 3:06 PM T [facility] Comment: ATP III Classification of LDL Cholesterol Primary Target of Therapy (in mg/dL): <100 Optimal 100-129 Near optimal/above optimal 130-159 Borderline high 160-189 High >=190 Very high Very Low Density Lipoprotein 36 mg/dL 12/25/2023 3:06 PM T [facility] Is patient fasting? 12/24 3:06 PM CDT [facility] Blood Venipuncture / Unknown 12/25/2023 1:40 PM CDT 12/25/2023 1:48 PM CDT Radha Khan APRN LAB BLOOD ORDERABLES [facility] [address] [facility], [facility] [address] [place] [address] * General Laboratory Add-On Test (05/06/2023 11:00 AM CDT) Ordered Test Added YUMA [facility] Test Needed ferritin, tsh, and free T4 [facility] Existing 05/06/2023 11:0 0 AM CDT 05/06/2023 11:00 AM CDT Radha Khan APRN LAB BLOOD ORDERABLES Performing Organization Address [facility] Co de Phone Number [facility] Unless otherwise noted, all lab tests performed by: Division of Pathology and Laboratory Medicine [address] [place] [id number] * Dr. Chau Prot Electrophoresis Path Review (05/06/2023 10:12 AM CDT) [facility] Interp The follow-up serum protein electrophoretic pattern shows that the M-protein peak is still present. The small degree of change between the current value and that of the previous study on 10/24/2022 falls within the expected imprecision limits of this test. Due to its overlapping migration with a beta band, precise quantitation of this peak is difficult to achieve in this study, consequently, correlation of these results with the clinical findings is recommended. [facility] Comment: MD Kota NOYOLA [id number] Dictated by: MD Kota NOYOLA Dictated Date/Time: 05.08.2023 15:07 PM CDT Transcribed Date/Time: 05.08.2023 15:07 PM CDT Electronically Signed By: MD Kota NOYOLA [id number] on 05.08.2023 15:07 PM Blood 05/06/2023 10:1 2 AM CDT 05/07/2023 12:40 PM CDT Radha Khan APRN LAB BLOOD ORDERABLES Performing Organization Address City/[facility] Co de Phone Number [facility] Unless otherwise noted, all lab tests performed by: Division of Pathology and Laboratory Medicine [address] [place] [phone] * Dr. Chau MICHEAL Path Review (05/06/2023 10:12 AM CDT) [facility] Int The follow-up serum protein immunofixation electrophoretic patterns obtained with the use of antisera against IgG, IgA, IgM, bound kappa and bound lambda light chains are positive for an IgG kappa monoclonal gammopathy. [facility] Comment: MD Kota NOYOLA [id number] Dictated by: MD Kota NOYOLA [id number] Dictated Date/Time: 05.08.2023 15:07 PM CDT Transcribed Date/Time: 05.08.2023 15:07 PM CDT Electronically Signed By: MD Kota NOYOLA [id number] on 05.08.2023 15:07 PM Blood 05/06/2023 10:1 2 AM CDT 05/07/2023 12:40 PM CDT Radha Khan APRN LAB BLOOD ORDERABLES [facility] Unless otherwise noted, all lab tests performed by: Division of Pathology and Laboratory Medicine [address] [place] [id number] * .Serum Creatinine (05/06/2023 10:12 AM CDT) [facility] Creatinine 0.95 0.67 - 1.17 mg/dL [facility] Comment:Testing performed at [facility], [address] [place] [address] Blood 05/06/2023 10:1 2 AM CDT 05/06/2023 10:13 AM CDT Radha Khan APRN LAB BLOOD ORDERABLES [facility] [address] [facility], [facility] [address] [place] [address] * Glomerular Filtration Rate (05/06/2023 10:12 AM CDT) [facility] eGFR 96 >=60 mL/min/1.7 3 sq. m [facility] Comment: The eGFRcr is calculated with the 2020 CKD-EPI creatinine equation using creatinine, patient's age, and sex for adults 18 years of age and older. Other factors, especially muscle mass, may affect accuracy and need to be considered. According to the Kidney Disease: Improving Global Outcomes (KDIGO) CKD Work Group 2012 Clinical Practice Guideline, chronic kidney disease (CKD) is defined as the abnormalities of kidney structure or function, present for more than 3 months, with implications for health. CKD should be classified by cause, GFR category, and albuminuria category. KDIGO guidelines provide the following GFR categories Stage Description GFR mL/min/1.73 m2 G1* Normal or high >= 90 G2* Mildly decreased 60-89 G3a Mildly to moderately decreased 45-59 G3b Moderately to severely decreased 30-44 G4 Severely decreased 15-29 G5 Kidney failure <15 *In the absence of evidence of kidney damage, neither G1 nor G2 fulfill criteria for CKD. Testing performed at [facility], [address] [place] [address] Blood 05/06/2023 10:1 2 AM CDT 05/06/2023 10:13 AM CDT Radha Khan APRN LAB BLOOD ORDERABLES Performing Organization Address City/State/[facility] Co de Phone Number [address], [facility] [address] [place] [address] * Fractionated Bilirubin (05/06/2023 10:12 AM CDT) [facility] Bili Total 0.5 <=1.2 mg/dL [facility] Comment: Indocyanine Green (ICG) may cause falsely elevated bilirubin results. Total and direct bilirubin must not be measured from samples containing indocyanine green. False elevation of total bilirubin can be seen in patients with IgG concentrations above 28 g/L. Testing performed at [facility], [address] [place] [address] Bili Direct 0.2 <=0.3 mg/dL [facility] Comment: Indocyanine Green (ICG) may cause falsely elevated bilirubin results. Total and direct bilirubin must not be measured from samples containing indocyanine green. Testing performed at [facility], [address] [place] [address] Bili Indirect 0.3 0.0 - 0.9 mg/dL [facility] Comment:Testing performed at [facility], [address] [place] [address], [place] [address] Blood 05/06/2023 10:1 2 AM CDT 05/06/2023 10:13 AM CDT Radha Khan APRN LAB BLOOD ORDERABLES [address], [facility] [address] [place] [address] * Differential (05/06/2023 10:12 AM CDT) [facility] Neutrophil % 68.2 43.2 - 72.7 % [facility] Comment:All components of th e Differential performed at [facility], [address] [place] [address] Lymphocyte % 20.8 16.8 - 46.2 % [facility] Comment:As part of the Diffe rential testing performed at [facility], [address] [place] [address], [place] [address] Monocyte % 6.8 5.1 - 12.5 % [facility] Comment:As part of the Diffe rential testing performed at [facility], [address] [place] [address] Eosinophil % 3.5 0.4 - 6.3 % [facility] Comment:As part of the Diffe rential testing performed at [facility], [address] [place] [address] Basophil % 0.5 0.2 - 1.4 % [facility] Comment:As part of the Diffe rential testing performed at [facility], [address] [place] [address] IGRE % 0.2 0.1 - 1.5 % [facility] Comment: IGRE % count includes Metamyelocytes, Myelocytes, and Promyelocytes. As part of the Differential testing performed at [facility], [address] [place] [address] Neutrophil Abs 5.80 1.95 - 7.25 K/uL [facility] Comment:As part of the Diffe rential testing performed at [facility], [address] [place] [address], [place] [address] Lymphocyte Abs 1.77 1.01 - 3.24 K/uL [facility] Comment:As part of the Diffe rential testing performed at [facility], [address] [place] [address] Monocyte Abs 0.58 0.24 - 0.85 K/uL [facility] Comment:As part of the Diffe rential testing performed at [facility], [address] [place] [address] Eosinophil Abs 0.30 0.02 - 0.50 K/uL [facility] Comment:As part of the Diffe rential testing performed at [facility], [address] [place] [address] Basophil Abs 0.04 0.02 - 0.09 K/uL [facility] Comment:As part of the Diffe rential testing performed at [facility], [address] [place] [address] IG Abs 0.02 0.01 - 0.12 K/uL [facility] Comment:As part of the Diffe rential testing performed at [facility], [address] [place] [address] Blood 05/06/2023 10:1 2 AM CDT 05/06/2023 10:13 AM CDT Radha Khan APRN LAB BLOOD ORDERABLES JOSEFINA ORR MD [address], [facility] [address] [place] [address] * Immunofixation Electrophoresis Serum (05/06/2023 10:12 AM CDT) MICHEAL RACHEL PANTOJA [facility] Blood 05/06/2023 10:1 2 AM CDT 05/06/2023 1:22 PM CDT Radha Khan [employer] COUNSELOR LAB BLOOD ORDERABLES [facility] Unless otherwise noted, all lab tests performed by: Division of Pathology and Laboratory Medicine [address] [place] [address] * BUN (05/06/2023 10:12 AM CDT) BUN 20 6 - 23 mg/dL [facility] Comment:Testing performed at [facility], [address] [place] [address] Blood 05/06/2023 10:1 2 AM CDT 05/06/2023 10:13 AM CDT Radha Khan [employer] SCHO[employer] COUNSELOR LAB BLOOD ORDERABLES [address] [address] * ALT (05/06/2023 10:12 AM CDT) ALT 22 <=41 U/L [facility] Comment:Testing performed at [facility], [address] [place] [address] Blood 05/06/2023 10:1 2 AM CDT 05/06/2023 10:13 AM CDT Radha Khan [employer] SCHO[employer] COUNSELOR LAB BLOOD ORDERABLES [address] [address] * Aspartate Aminotransferase (05/06/2023 10:12 AM CDT) AST 22 <=40 U/L [facility] Comment:Testing performed at [facility], [address] [place] [address] Blood 05/06/2023 10:1 2 AM CDT 05/06/2023 10:13 AM CDT Radha Khan APRN LAB BLOOD ORDERABLES [facility] [address] [facility], [facility] [address] [place] [address] * (ABNORMAL) Protein Electrophoresis (05/06/2023 10:12 AM CDT) TOT PROTEIN 8.2 6.4 - 8.3 gm/dL [facility] Albumin 4.2 3.6 - 5.4 gm/dL [facility] Alpha 1 Globulin 0.3 0.2 - 0.4 gm/dL [facility] Alpha 2 Globulin 1.0 0.5 - 1.0 gm/dL [facility] Beta Globulin 1.0 0.5 - 1.1 gm/dL [facility] Gamma Globulin 1.6 0.7 - 1.6 gm/dL [facility] Paraprotein1 0.7(H) 0.0 - 0.0 gm/dL [facility] Blood 05/06/2023 10:1 2 AM CDT 05/06/2023 1:22 PM CDT Radha Khan APRN LAB BLOOD ORDERABLES [facility] Unless otherwise noted, all lab tests performed by: Division of Pathology and Laboratory Medicine [address] [place] [address] * Total Protein (05/06/2023 10:12 AM CDT) Total Protein 8.2 6.4 - 8.3 g/dL [facility] Comment:Testing performed at [facility], [address] [place] [address], [place] [address] Blood 05/06/2023 10:1 2 AM CDT 05/06/2023 10:13 AM CDT Radha L Khan [employer] COUNSELOR LAB BLOOD ORDERABLES [address] [address] * Alkaline Phosphatase (05/06/2023 10:12 AM CDT) [facility] Alk Phos 121 40 - 129 U/L [facility] Comment:Testing performed at [facility], [address] [place] [address] Blood 05/06/2023 10:1 2 AM CDT 05/06/2023 10:13 AM CDT Radha Khan [employer] SCHO[employer] COUNSELOR LAB BLOOD ORDERABLES Performing Organization Address City/[facility] Co de Phone Number [address] [address] * LDH (05/06/2023 10:12 AM CDT) [facility] LDH 157 135 - 225 U/L [facility] Comment: Results greater than 1651 U/L may not be reliable due to matrix effect with extended dilution as it exceeds the hide stretcher hand's recommended limit. Caution should be exercised when interpreting such values and done in conjunction with clinical context. Testing performed at [facility], [address] [place] [address] Blood 05/06/2023 10:1 2 AM CDT 05/06/2023 10:13 AM CDT Radha Khan [employer]CHO[employer] COUNSELOR LAB BLOOD ORDERABLES [address] [address] * Glucose Level (05/06/2023 10:12 AM CDT) [facility] Glucose Level 99 70 - 99 mg/dL [facility] Comment: Effective 02/21/16, the glucose reference intervals have been updated based on [place] Diabetes [employer] guidelines (Standards of Medical Care in Diabetes 2016. Diabetes Care 2016; 39: S13-S22). Fasting blood glucose: Normal: 70-99 mg/dL Impaired fasting glucose (increased risk for diabetes or pre-diabetes): 100- 125 mg/dL Diabetes mellitus: >/=126 mg/dL Random blood glucose: Normal: 70-199 mg/dL Note: Random glucose >100 mg/dL is associated with increased risk for diabetes Testing performed at [facility], [address] [place] [address] Blood 05/06/2023 10:1 2 AM CDT 05/06/2023 10:13 AM CDT Radha Khan APRN LAB BLOOD ORDERABLES [address] [address] * Calcium Level (05/06/2023 10:12 AM CDT) Calcium Lvl 10.2 8.4 - 10.2 mg/dL [facility] Comment:Testing performed at [facility], [address] [place] [address] Blood 05/06/2023 10:1 2 AM CDT 05/06/2023 10:13 AM CDT Radha Khan APRN LAB BLOOD ORDERABLES [address] [address] * Albumin Level (05/06/2023 10:12 AM CDT) Albumin Lvl 4.4 3.5 - 5.2 gm/dL [facility] Comment:Testing performed at [facility], [address] [place] [address] Blood 05/06/2023 10:1 2 AM CDT 05/06/2023 10:13 AM CDT Radha Khan [employer] COUNSELOR LAB BLOOD ORDERABLES [place] [address] [place] [address] * Electrolyte Panel (05/06/2023 10:12 AM CDT) Sodium Lvl 141 136 - 145 mEq/L [facility] Comment:Testing performed at [facility], [address] [place] [address] Potassium Lvl 4.6 3.5 - 5.1 mEq/L [facility] Comment:Testing performed at [facility], [address] [place] [address] Chloride 103 98 - 107 mEq/L [facility] Comment:Testing performed at [facility], [address] [place] [address] CO2 29 22 - 29 mEq/L [facility] Comment:Testing performed at [facility], [address] [place] [address] Anion Gap 9 4 - 14 mEq/L [facility] Comment:Testing performed at [facility], [address] [place] [address] Blood 05/06/2023 10:1 2 AM CDT 05/06/2023 10:13 AM CDT Radha Khan [employer]CHO[employer] COUNSELOR LAB BLOOD ORDERABLES [address], [facility] [address] [place] [address] after 01/15/2023 Care Teams Principal Solutions Architect Relationship Specialty Start Date End Date Kendall Orantes Rp, MD [address] [place] [address] [email or web address] PCP - General Hematology and Oncology 09/15/18 Nicole Louis MD [address] [place] [address] [address] [place] [address] [email or web address] PCP - External Referring Rheumatology 10/01/18 Enrique Connolly MD [address] [facility] [place], [place] [address] PCP - External Primary Care Provider Family Practice 10/01/18 Tanesha Silveira MD [address] [place] [address] PCP - External Follow Up A Ophthalmology 10/01/18 Sayda Pritchett MD [address] [place] [address] [phone] [email or web address] Consulting Physician Neuro-Oncology 01/12/19
[2024-01-15] MEDS ORDERED: NA CHLORIDE 0.9% 1,000 ML ONE (07:59)
[2024-01-15] MEDS ORDERED: ASPIRIN 81 MG CHEWABLE TABLET ONE (07:59)
[2024-01-15] MEDS ORDERED: NA CHLORIDE 0.9% 500 ML ONE (08:00)
[2024-01-15 08:14] LABS: Absolute Eosinophils 0.2 K/uL (0-0.5); Absolute Lymphocytes (CBC) 1.5 K/uL (0.7-4.9); Absolute Monocytes 0.5 K/uL (0.1-1.3); Absolute Neutrophil 3.7 K/uL (1.8-8.0); Basophils % 0.6 % (0-1.3); Eosinophils % 3.2 % (0-4.4); Hematocrit 39.4 % (39.6-49.0); Hemoglobin 12.9 g/dL (13.6-17.9); Lymphocytes % 25.9 % (15.3-44.8); MCH 26.1 pg (27.0-35.0); MCHC 32.8 g/dL (32.0-36.0); MCV 79.5 fL (80-100); MPV 7.9 fL (7.6-11.3); Monocytes % 8.1 % (3.3-12.3); Neutrophils % 62.2 % (41.7-73.7); Platelets 287 thou/uL (152-406); RBC Red Blood Cell Count 4.96 M/uL (4.33-5.43); Red Cell Distribution Width 15.8 % (12.1-15.2)
[2024-01-15 08:16] LABS: PT Prothrombin Time 12.9 SECONDS (9.5-12.5); Protime INR 1.18
[2024-01-15] MEDS ORDERED: FOLIC ACID 5 MG/ML VIAL ONE (08:24)
--- NOTE | 2024-01-15 08:42 | RAD REPORT ---
EXAM DESCRIPTION: Nohemyt Single View01/15/2024 8:15 am CLINICAL HISTORY: CHEST PAIN COMPARISON: Chest Single View dated 09/07/2019; Chest Pa And Lat (2 Views) dated 06/05/2017; Chest Pa And Lat (2 Views) dated 01/16/2016 TECHNIQUE: Portable AP view of the chest. FINDINGS: The lungs are clear. No pneumothorax or effusion. The cardiomediastinal contours are unre markable. IMPRESSION: No acute cardiopulmonary process.
[2024-01-15 08:46] LABS: Albumin 3.5 g/dL (3.4-5.0); Albumin/Globulin Ratio 0.8 (1.1-1.8); Anion Gap 7.9 mEq/L (5.0-15.0); Bilirubin Direct 0.2 mg/dL (0-0.2); Bilirubin Indirect, Calculated 0.3 mg/dL (0.2-0.8); Bilirubin Total 0.5 mg/dL (0.2-1.0); Globulin 4.5 g/dL (2.3-3.5); Magnesium 2.1 mg/dL (1.6-2.4); Potassium 3.9 mEq/L (3.5-5.1); Troponin High Sensitivity 3.7 pg/mL (<58.9)
--- NOTE | 2024-01-15 08:54 | RAD REPORT ---
EXAM DESCRIPTION: CT - Head Brain Wo Cont - 01/15/2024 8:03 am CLINICAL HISTORY: DIZZINESS COMPARISON: No comparisons TECHNIQUE: Noncontrast head CT images were obtained without IV contrast. Multiplanar reformats were generated and reviewed. All CT scans are performed using dose optimization technique as appropriate and may include automated exposure control or mA/KV adjustment according to patient size. FINDINGS: No intracranial hemorrhage, mass, or edema. Midline structures are unremarkable. Normal ventricular caliber for age. Traore-white matter differentiation is preserved, without evidence of acute infarct. No abnormal extra- axial fluid collections. Mastoid air cells and visualized portions of the paranasal sinuses are clear. No acute bony findings. IMPRESSION: No evidence of an acute intracranial process.
--- NOTE | 2024-01-15 10:03 | RAD REPORT ---
EXAM DESCRIPTION: CT - Head angio - 01/15/2024 9:06 am CLINICAL HISTORY: DIZZINESS COMPARISON: Head Brain Wo Cont dated 01/15/2024; Neck Angio dated 01/15/2024 TECHNIQUE: Axial CT angiography images of the head was performed with multiplanar and maximum intens ity projection reconstructions. Images performed following intravenous administration of 100mL Isovue 370. All CT scans are performed using dose optimization technique as appropriate and may include automated exposure control or mA/KV adjustment according to patient size. FINDINGS: No evidence of large vessel occlusion. No evidence of aneurysm or dissection flap is detec zoila. No flow-limiting stenosis or vascular malformation identified. Antegrade flow is seen in the vertebral arteries. The vertebral arteries are codominant. The visualized dural venous sinuses are grossly patent. IMPRESSION: No evidence of large vessel occlusion or flow-limiting stenosis.
--- NOTE | 2024-01-15 10:06 | RAD REPORT ---
EXAM DESCRIPTION: CT - Neck Angio - 01/15/2024 9:06 am CLINICAL HISTORY: HEADACHE COMPARISON: No comparisons TECHNIQUE: Axial CT angiography images of the neck was performed with multiplanar and maximum intens ity projection reconstructions. Images performed following intravenous administration of 100mL Isovue 370. All CT scans are performed using dose optimization technique as appropriate and may include automated exposure control or mA/KV adjustment according to patient size. Quantification of carotid stenosis, if any, is performed according to NASCET criteria. FINDINGS: A left aortic arch is identified with 4 vessel variant, with the left vertebral artery etta sing directly as the third vessel from the arch. Streak artifact resulting from dense venous contrast limits evaluation of the proximal right CCA and proximal right subclavian segments. No significant flow abnormality is seen of the common carotid bilaterally. No significant stenosis is identified involving the cervical segments of both internal carotid arteri es. Normal flow is seen within both vertebral arteries. IMPRESSION: No significant flow abnormality of the neck vessels is identified. CAROTID STENOSIS REFERENCE USING NASCET CRITERIA: % ICA stenosis = (1 - narrowest ICA diameter/diameter of distal cervical ICA) x 100. Mild - <50% stenosis. Moderate - 50-69% stenosis. Severe - 70-94% stenosis. Near occlusion - 95-99% stenosis. Occluded - 100% stenosis.
[2024-01-15 10:30] LABS: Specific Gravity 1.023 (1.005-1.030); Urine Bilirubin NEGATIVE (Negative); Urine Blood Negative (Negative); Urine Clarity Clear (Clear); Urine Color Colorless (Yellow); Urine Glucose NEGATIVE (Negative); Urine Ketones NEGATIVE (Negative); Urine Microscopic Reflex YN NO UMIC; Urine Nitrite NEGATIVE (Negative); Urine Protein NEGATIVE (Negative); Urine Urobilinogen Normal (Normal); Urine pH 7.5 (5.0-7.0)
--- NOTE | 2024-01-15 10:31 | RAD REPORT ---
EXAM DESCRIPTION: MRI - Brain Wo Cont - 01/15/2024 9:43 am CLINICAL HISTORY: SLURRED SPEECH COMPARISON: Head CT and CT angiogram of the same day TECHNIQUE: Multiplanar multisequence MRI of the brain performed without IV contrast. FINDINGS: No evidence of acute infarct or other diffusion signal abnormality. No evidence of acute intracranial hemorrhage or abnormal extra-axial fluid collections. Mild diffuse parenchymal volume loss. Ventricular caliber otherwise within normal for age. Midline st ructures are unremarkable. Scattered deep white matter T2/FLAIR hyperintensities centered on the subinsular and centrum semioval e regions bilaterally, nonspecific, but suggestive of chronic small vessel ischemic changes. No mass effect or midline shift. Major vascular flow voids are preserved. Mastoid air cells and paranasal sinuses are clear. IMPRESSION: No acute intracranial process. No evidence of ventriculomegaly or mass effect. Nonspecific mild deep white matter T2 signal abnormalities, suggestive of chronic small vessel ischem ic changes.
--- NOTE | 2024-01-15 10:48 | EDPHYS ---
Physician Documentation [facility] Name: Norman Craft Age: 53 yrs Sex: Male : 1970 Arrival Date: 01/15/2024 Time: 07:44 Bed 7 Private MD: DAVID Physician Kvng Mahoney HPI: 01/14 08:37 This 53 yrs old Male presents to ER via Ambulatory with complaints of Chest bam Pain, High Blood Pressure, Dizziness, Vision Problem. 08:37 The patient or guardian reports chest pain that is located primarily in the anterior bam chest wall, bilaterally. Onset: 1 day(s) ago. The pain does not radiate. Associated signs and symptoms: Pertinent positives: dizziness, lightheadedness. The chest pain is described as a pressure. Modifying factors: The symptoms are alleviated by nothing. the symptoms are aggravated by nothing. 08:41 The patient's problem is reported as dysphasia, expressive aphasia. Onset: The bam symptoms/episode began/occurred yesterday. Duration: The episodes are intermittent. Context: the episode(s) was witnessed, by EMS personnel, by family, by a friend. The symptoms are alleviated by nothing. The symptoms are aggravated by nothing. Associated signs and symptoms: The patient has no apparent associated signs or symptoms. Severity of symptoms: At their worst the symptoms were very mild. Patient's baseline: Neuro: alert and fully oriented. Historical: - Allergies: 07:57 No Known Allergies; aa5 - PMHx: 07:57 GERD; High Cholesterol; aa5 07:58 MGUS (Monoclonal gammopathy)- Protein; aa5 - Immunization history:: Adult Immunizations unknown. - Infectious Disease History:: Denies. - Social history:: Smoking status: Patient denies any tobacco usage or history of. - Family history:: not pertinent. ROS: 08:42 Constitutional: Negative for fever, chills, and weight loss, Eyes: Negative for injury, bam pain, redness, and discharge, ENT: Negative for injury, pain, and discharge, Neck: Negative for injury, pain, and swelling, Respiratory: Negative for shortness of breath, cough, wheezing, and pleuritic chest pain, Abdomen/GI: Negative for abdominal pain, nausea, vomiting, diarrhea, and constipation, Back: Negative for injury and pain, : Negative for injury, bleeding, discharge, and swelling, MS/Extremity: Negative for injury and deformity, Skin: Negative for injury, rash, and discoloration, Psych: Negative for depression, anxiety, suicide ideation, homicidal ideation, and hallucinations, Allergy/Immunology: Negative for hives, rash, and allergies, Endocrine: Negative for neck swelling, polydipsia, polyuria, polyphagia, and marked weight changes, Hematologic/Lymphatic: Negative for swollen nodes, abnormal bleeding, and unusual bruising, 08:42 Cardiovascular: Positive for chest pain, of the chest, 08:42 Neuro: Positive for dizziness, speech changes, Exam: 08:42 Radiologist reports: neg bam 08:42 Constitutional: This is a well developed, well nourished patient who is awake, alert, and in no acute distress. Head/Face: Normocephalic, atraumatic. Eyes: Pupils equal round and reactive to light, extra-ocular motions intact. Lids and lashes normal. Conjunctiva and sclera are non-icteric and not injected. Cornea within normal limits. Periorbital areas with no swelling, redness, or edema. ENT: Nares patent. No nasal discharge, no septal abnormalities noted. Tympanic membranes are normal and external auditory canals are clear. Oropharynx with no redness, swelling, or masses, exudates, or evidence of obstruction, uvula midline. Mucous membranes moist. Neck: Trachea midline, no thyromegaly or masses palpated, and no cervical lymphadenopathy. Supple, full range of motion without nuchal rigidity, or vertebral point tenderness. No Meningismus. Chest/axilla: Normal chest wall appearance and motion. Nontender with no deformity. No lesions are appreciated. Cardiovascular: Regular rate and rhythm with a normal S1 and S2. No gallops, murmurs, or rubs. Normal PMI, no JVD. No pulse deficits. Respiratory: Lungs have equal breath sounds bilaterally, clear to auscultation and percussion. No rales, rhonchi or wheezes noted. No increased work of breathing, no retractions or nasal flaring. Abdomen/GI: Soft, non-tender, with normal bowel sounds. No distension or tympany. No guarding or rebound. No evidence of tenderness throughout. Back: No spinal tenderness. No costovertebral tenderness. Full range of motion. Male : Normal genitalia with no discharge or lesions. Skin: Warm, dry with normal turgor. Normal color with no rashes, no lesions, and no evidence of cellulitis. MS/ Extremity: Pulses equal, no cyanosis. Neurovascular intact. Full, normal range of motion. Neuro: Awake and alert, GCS 15, oriented to person, place, time, and situation. Cranial nerves II-XII grossly intact. Motor strength 5/5 in all extremities. Sensory grossly intact. Cerebellar exam normal. Normal gait. Psych: Awake, alert, with orientation to person, place and time. Behavior, mood, and affect are within normal limits. 08:42 ECG was reviewed by the Attending Physician. Vital Signs: 07:48 BP 163 / 98; Pulse 76; Resp 16 S; Temp 97.2(TE); Pulse Ox 99% on R/A; Weight 78.93 kg aa5 (R); Height 5 ft. 6 in. (R); 08:27 BP 137 / 90; Pulse 64; Resp 14; Pulse Ox 100% ; ko1 09:27 BP 141 / 82; Pulse 68; Resp 16; Pulse Ox 99% ; ko1 12:50 BP 128 / 77; Pulse 65; Resp 16; Pulse Ox 99% ; ko1 07:48 Body Mass Index 28.08 (78.93 kg, 167.64 cm) aa5 NIH Stroke Scale Scores: 08:42 NIHSS Score: 0 bam MDM: 07:50 Patient medically screened. bam 08:44 Differential diagnosis: abnormal EKG, acute myocardial infarction, acute pericarditis, bam anxiety, coronary artery disease chest wall pain, Cholelithiasis costochondritis, CVA, TIA, Dementia, metabolic disorder, gastritis, hiatal hernia, pancreatitis, peptic ulcer disease, pericarditis, pneumothorax, pulmonary embolus, stable angina, thoracic aortic disection, unstable angina. HEART Score: History: Slightly Suspicious (0), ECG: Normal (0), Age: > 45 and < 65 years (1), Risk Factors: 1 or 2 risk factors (1), [Hypercholesterolemia] [+ Family HX] Troponin: < or = 1 x Normal Limit (0). The patient was given aspirin in the Emergency Department. JAIRO Risk Score: TOTAL SCORE = 0. Data reviewed: vital signs, nurses notes, lab test result(s), EKG, radiologic studies, CT scan, MRI, plain films. Consideration of Admission/Observation Patient was admitted/placed on observation. Escalation of care including admission/observation considered. I considered the following discharge prescriptions or medication management in the emergency department Medications were administered in the Emergency Department. See MAR. Independent interpretation of the following test(s) in the Emergency Department EKG: See my EKG interpretation above. Test considered but Not performed:. Test considered but Not performed: Ultrasound no carotid doppler. Historians other than the Patient: Spouse/Significant Other: well informed. Care significantly affected by the following chronic conditions: Diabetes, gerd, high chlesterol, mgus. Counseling: I had a detailed discussion with the patient and/or guardian regarding the historical points, exam findings, and any diagnostic results supporting the discharge/admit diagnosis, the presence of at least one elevated blood pressure reading (>120/80) during this emergency department visit, lab results, the need for further work-up and treatment in the hospital. 01/14 07:51 Order name: Basic Metabolic Panel; Complete Time: 08:48 [facility] 01/14 07:51 Order name: CBC with Diff; Complete Time: 08:48 [facility] 01/14 07:51 Order name: LFT's; Complete Time: 08:48 [facility] 01/14 07:51 Order name: Magnesium; Complete Time: 08:48 [facility] 01/14 07:51 Order name: NT PRO-BNP; Complete Time: 08:48 [facility] 01/14 07:51 Order name: PT-INR; Complete Time: 08:48 [facility] 01/14 07:51 Order name: Troponin HS; Complete Time: 08:48 [facility] 01/14 07:51 Order name: Urinalysis w/ reflexes; Complete Time: 10:47 [facility] 01/14 07:51 Order name: Lipase; Complete Time: 08:48 [facility] 01/14 10:25 Order name: Troponin High Sensitivity: 1030am [facility] 01/14 11:55 Order name: COVID-19/FLU A+B [facility] 01/14 11:55 Order name: Hemoglobin A1c [facility] 01/14 11:55 Order name: Thyroid Stimulating Hormone [facility] 01/14 11:55 Order name: Basic Metabolic Panel [facility] 01/14 11:55 Order name: Basic Metabolic Panel [facility] 01/14 11:55 Order name: Basic Metabolic Panel [facility] 01/14 11:55 Order name: Basic Metabolic Panel [facility] 01/14 11:55 Order name: CBC with Automated Diff [facility] 01/14 11:55 Order name: CBC with Automated Diff [facility] 01/14 11:55 Order name: CBC with Automated Diff [facility] 01/14 11:55 Order name: CBC with Automated Diff [facility] 01/14 07:51 Order name: XRAY Chest (1 view); Complete Time: 08:48 bam 01/14 07:51 Order name: CT Head Brain wo Cont; Complete Time: 09:13 bam 01/14 08:14 Order name: CT Head Angio; Complete Time: 10:47 bam 01/14 08:14 Order name: CT Neck Angio; Complete Time: 10:47 bam 01/14 08:31 Order name: Brain Wo Cont; Complete Time: 10:47 [facility]MS 01/14 07:51 Order name: EKG; Complete Time: 07:52 [facility] 01/14 07:51 Order name: Cardiac monitoring; Complete Time: 08:01 [facility] 01/14 07:51 Order name: EKG - Nurse/Tech; Complete Time: 08:01 [facility] 01/14 07:51 Order name: IV Saline Lock; Complete Time: 08:01 [facility] 01/14 07:51 Order name: Labs collected and sent; Complete Time: 08:01 [facility] 01/14 07:51 Order name: O2 Per Protocol; Complete Time: 08:01 [facility] 01/14 07:51 Order name: O2 Sat Monitoring; Complete Time: 08:01 [facility] EC:42 Rate is 81 beats/min. Rhythm is regular. QRS [place]kerel is Normal. UT interval is normal. QRS bam interval is normal. QT interval is normal. No Q waves. T waves are Normal. No ST changes noted. Clinical impression: NSR w/ Non-specific ST/T Changes, 1st degree heart block, and No evidence of ischemia. Interpreted by me. Reviewed by me. Administered Medications: 08:00 Drug: Aspirin PO Chewable Tablet 324 mg PO once; 81 mg tablets x 4 Route: PO; rs5 09:00 Follow up: Response: No adverse reaction ko1 08:10 Drug: NS 0.9% IV 500 ml IV at bolus once Route: IV; Rate: bolus; Site: right forearm; rs5 08:29 Follow up: Response: No adverse reaction rs5 09:00 Follow up: Response: No adverse reaction; IV Status: Completed infusion; IV Intake: ko1 500ml 08:10 Drug: NS 0.9% IV 1000 ml IV at 125 ml/hr continuous Route: IV; Rate: 125 ml/hr; Site: rs5 right forearm; 08:30 Follow up: Response: No adverse reaction rs5 08:20 Drug: foLIC Acid IVPB 1 mg IVPB once Route: IVPB; Site: right antecubital; rs5 08:30 Follow up: Response: No adverse reaction rs5 08:35 Follow up: Response: No adverse reaction; IV Status: Completed infusion ko1 08:29 Not Given (Physician Discretion): ns 0.9% 500 ml IV at bolus once rs5 Disposition Summary: 01/15/24 10:48 Hospitalization Ordered Notes: Hospitalization Status: Observation bam Provider: Nissa Meadows cha Location: Telemetry/MedSurg (observation) bam Condition: Fair bam Problem: new bam Symptoms: have improved bam Bed/Room Type: Standard bam Room Assignment: 411(01/15/24 12:29) em1 Diagnosis - Chest pain, unspecified bam - Dizziness and giddiness bam - Aphasia - RESOLVED bam Forms: - Medication Reconciliation Form bam - SBAR form bam - Leadership Thank You Letter bam NIH Stroke Scale - NIH Stroke Score Date: 01/15/2024 Time: 08:42 Total Score = 0 10. Dysarthria (speech clarity - read or repeat words) - 0(Normal) 11. Extinction and Inattention (visual/tactile/auditory/spatial/personal) - 0(No abnormality) 1a. Level of Consciousness (LOC) - 0(Alert) 1b. Level of Consciousness (LOC) (Month \T\ Age) - 0(Both) 1c. LOC Commands (Open \T\ Closes Eyes/Parent Trainer) - 0(Both) 2. Best Gaze (Lateral Gaze Paresis) - 0(Normal) 3. Visual Field Loss - 0(No visual loss) 4. Facial Palsy - 0(Normal) 5a. Left Arm: Motor (10-second hold) - 0(No drift) 5b. Right Arm: Motor (10-second hold) - 0(No drift) 6a. Left Leg: Motor (5-second hold - always test supine) - 0(No drift) 6b. Right Leg: Motor (5-second hold - always test supine) - 0(No drift) 7. Limb Ataxia (finger/nose \T\ heel/miranda - test with eyes open) - 0(Absent) 8. Sensory Loss (pinprick arms/legs/face) - 0(Normal) 9. Best Language: Aphasia (description/naming/reading) - 0(No aphasia) Initials: bam Signatures: Dispatcher [employer] EDMS Kvng Mahoney MD MD cha Martinez, Mainor em1 Alexia Lopes, RN RN aa5 Lei Mccain RN RN rs5 Elaine Joy RN ko1 Corrections: (The following items were deleted from the chart) 07:52 07:52 BASIC METABOLIC PANEL+C.LAB.BRZ ordered. EDMS EDMS 07:52 07:52 CBC+H.LAB.BRZ ordered. EDMS EDMS 07:52 07:52 HEPATIC FUNCTION+C.LAB.BRZ ordered. EDMS EDMS 07:52 07:52 MAGNESIUM+C.LAB.BRZ ordered. EDMS EDMS 07:52 07:52 PROBNP+C.LAB.BRZ ordered. EDMS EDMS 07:52 07:52 PROTIME (+INR)+COAG.LAB.BRZ ordered. EDMS EDMS 07:52 07:52 Troponin High Sensitivity+C.LAB.BRZ ordered. EDMS EDMS 07:52 07:52 Urinalysis+U.LAB.BRZ ordered. EDMS EDMS 07:52 07:52 LIPASE+C.LAB.BRZ ordered. EDMS EDMS 07:52 07:52 Head Brain Wo Cont+CT.RAD.BRZ ordered. EDMS EDMS 08:14 08:14 Head Angio+CT.RAD.BRZ ordered. EDMS EDMS 08:14 08:14 Neck Angio+CT.RAD.BRZ ordered. EDMS EDMS 08:14 08:14 MR STROKE PROTOCOL+MRI.RAD.BRZ ordered. EDMS EDMS 12:29 10:48 bam em1
--- NOTE | 2024-01-15 10:48 | ER ---
Nurse's Notes [facility] Name: Norman Craft Age: 53 yrs Sex: Male : 1970 Arrival Date: 01/15/2024 Time: 07:44 Bed 7 Private MD: Diagnosis: Chest pain, unspecified;Dizziness and giddiness;Aphasia-RESOLVED Presentation: 01/14 07:48 Chief complaint: Patient states: dizziness and feeling lightheaded for 1-2 weeks. Pt aa5 states "I get this tingling all over my face and ears and I have pain in my left eye", pt reports symptoms got worse yesterday and today. Reports chest pressure since yesterday. 07:48 Onset of symptoms was December 2023. aa5 07:48 Acuity: ROSY 3 aa5 07:48 Method Of Arrival: Ambulatory aa5 07:48 Coronavirus screen: At this time, the client does not indicate any symptoms associated aa5 with coronavirus-19. Ebola Screen: Patient denies travel to an Ebola-affected area in the 21 days before illness onset. Initial Sepsis Screen: Does the patient meet any 2 criteria? No. Patient's initial sepsis screen is negative. Does the patient have a suspected source of infection? No. Patient's initial sepsis screen is negative. Risk Assessment: Do you want to hurt yourself or someone else? Patient reports no desire to harm self or others. Historical: - Allergies: 07:57 No Known Allergies; aa5 - PMHx: 07:57 GERD; High Cholesterol; aa5 07:58 MGUS (Monoclonal gammopathy)- Protein; aa5 - Immunization history:: Adult Immunizations unknown. - Infectious Disease History:: Denies. - Social history:: Smoking status: Patient denies any tobacco usage or history of. - Family history:: not pertinent. Screenin:02 [facility] ED Fall Risk Assessment (Adult) History of falling in the last 3 months, ko1 including since admission No falls in past 3 months (0 pts) Confusion or Disorientation No (0 pts) Intoxicated or Sedated No (0 pts) Impaired Gait No (0 pts) Mobility Assist Device Used No (0 pt) Altered Elimination No (0 pt) Score/Fall Risk Level 0 - 2 = Low Risk Oriented to surroundings, Maintained a safe environment, Educated pt \\T\\ family on fall prevention, incl call for assistance when getting out of bed, Assessed \\T\\ reinforced patient's understanding of fall precautions, Provided non-skid footwear, Hourly rounding (assess needs \\T\\ fall precautionary measures) done, Used ambulatory aids as needed (educated on \\T\\ assisted with), Used gait belt as appropriate. Abuse screen: Denies threats or abuse. Denies injuries from another. Nutritional screening: No deficits noted. Tuberculosis screening: No symptoms or risk factors identified. Assessment: 07:50 General: Appears uncomfortable, Behavior is calm, cooperative. Pain: Complains of pain rs5 in chest Pain does not radiate. Pain currently is 3 out of 10 on a pain scale. Quality of pain is described as heavy, pressure, Pain began Is continuous. Neuro: Level of Consciousness is awake, alert, obeys commands, Oriented to person, place, time, situation. Neuro: Reports blurred vision interminable dizziness. Cardiovascular: Patient's skin is warm and dry. Respiratory: Airway is patent Respiratory effort is even, unlabored, Respiratory pattern is regular, symmetrical. GI: Abdomen is round non-distended, Abd is soft and non tender X 4 quads. : No signs and/or symptoms were reported regarding the genitourinary system. EENT: No signs and/or symptoms were reported regarding the EENT system. 07:50 Derm: Skin is intact, Skin is dry, Skin is normal, Skin temperature is warm. rs5 Musculoskeletal: Range of motion: intact in all extremities. 08:29 Reassessment: Patient and/or family updated on plan of care and expected duration. Pain rs5 level reassessed. Patient is alert, oriented x 3, equal unlabored respirations, skin warm/dry/pink. 09:38 Reassessment: No changes from previously documented assessment. rs5 10:48 Reassessment: Patient and/or family updated on plan of care and expected duration. Pain rs5 level reassessed. Patient is alert, oriented x 3, equal unlabored respirations, skin warm/dry/pink. Patient denies pain at this time. 12:30 Reassessment: No changes from previously documented assessment. rs5 Vital Signs: 07:48 BP 163 / 98; Pulse 76; Resp 16 S; Temp 97.2(TE); Pulse Ox 99% on R/A; Weight 78.93 kg aa5 (R); Height 5 ft. 6 in. (R); 08:27 BP 137 / 90; Pulse 64; Resp 14; Pulse Ox 100% ; ko1 09:27 BP 141 / 82; Pulse 68; Resp 16; Pulse Ox 99% ; ko1 12:50 BP 128 / 77; Pulse 65; Resp 16; Pulse Ox 99% ; ko1 07:48 Body Mass Index 28.08 (78.93 kg, 167.64 cm) aa5 NIH Stroke Scale Scores: 08:42 NIHSS Score: 0 [facility] ED Course: 07:47 Patient arrived in ED. mr 07:48 Arm band placed on. aa5 07:50 Kvng Mahoney MD is Attending Physician. [facility] 07:52 Lei Mccain, RN is Primary Nurse. rs5 07:57 Triage completed. aa5 08:01 Lipase Sent. ko1 08:01 Basic Metabolic Panel Sent. ko1 08:02 Client placed on continuous cardiac and pulse oximetry monitoring. NIBP monitoring ko1 applied. coal cutter on. Door closed. Noise minimized. Lights dimmed. Warm blanket given. Pillow given. 08:02 Patient has correct armband on for positive identification. Placed in gown. Bed in low ko1 position. Call light in reach. Side rails up X 1. Provided Education on: labs/tests/call light. 08:02 CBC with Diff Sent. ko1 08:02 LFT's Sent. ko1 08:02 Magnesium Sent. ko1 08:02 NT PRO-BNP Sent. ko1 08:02 PT-INR Sent. ko1 08:02 Troponin HS Sent. ko1 08:02 Initial lab(s) drawn, by ct, sent to lab. EKG done, by ED staff, reviewed by Kvng Mahoney MD. Inserted saline lock: 20 gauge in right antecubital area, using aseptic technique. Blood collected. O2 via RA. 08:03 CT Head Brain wo Cont In Process Unspecified. EDMS 08:17 XRAY Chest (1 view) In Process Unspecified. EDMS 08:29 No provider procedures requiring assistance completed. rs5 09:08 CT Head Angio In Process Unspecified. EDMS 09:08 CT Neck Angio In Process Unspecified. EDMS 09:36 Brain Wo Cont In Process Unspecified. EDMS 10:15 Urinalysis w/ reflexes Sent. ko1 10:15 Urine collected: clean catch specimen, clear, Amount Voided: 700mL. ko1 10:47 Nissa Meadows MD is Hospitalizing Provider. bam 12:09 Troponin High Sensitivity: 1030am Sent. ko1 12:09 COVID-19/FLU A+B Sent. ko1 12:50 Patient admitted, IV remains in place. ko1 Administered Medications: 08:00 Drug: Aspirin PO Chewable Tablet 324 mg PO once; 81 mg tablets x 4 Route: PO; rs5 09:00 Follow up: Response: No adverse reaction ko1 08:10 Drug: NS 0.9% IV 500 ml IV at bolus once Route: IV; Rate: bolus; Site: right forearm; rs5 08:29 Follow up: Response: No adverse reaction rs5 09:00 Follow up: Response: No adverse reaction; IV Status: Completed infusion; IV Intake: ko1 500ml 08:10 Drug: NS 0.9% IV 1000 ml IV at 125 ml/hr continuous Route: IV; Rate: 125 ml/hr; Site: rs5 right forearm; 08:30 Follow up: Response: No adverse reaction rs5 08:20 Drug: foLIC Acid IVPB 1 mg IVPB once Route: IVPB; Site: right antecubital; rs5 08:30 Follow up: Response: No adverse reaction rs5 08:35 Follow up: Response: No adverse reaction; IV Status: Completed infusion ko1 08:29 Not Given (Physician Discretion): ns 0.9% 500 ml IV at bolus once rs5 Medication: 08:02 VIS not applicable for this client. ko1 Intake: 09:00 IV: 500ml; Total: 500ml. ko1 Outcome: 10:48 Decision to Hospitalize by Provider. bam 12:50 Admitted to ER Hold. Please see [facility] for further documentation. ko1 12:50 Condition: stable 12:50 Instructed on the need for admit, 13:33 Patient left the ED. rs5 NIH Stroke Scale - NIH Stroke Score Date: 01/15/2024 Time: 08:42 Total Score = 0 10. Dysarthria (speech clarity - read or repeat words) - 0(Normal) 11. Extinction and Inattention (visual/tactile/auditory/spatial/personal) - 0(No abnormality) 1a. Level of Consciousness (LOC) - 0(Alert) 1b. Level of Consciousness (LOC) (Month \\T\\ Age) - 0(Both) 1c. LOC Commands (Open \\T\\ Closes Eyes/Marine Animal Trainer) - 0(Both) 2. Best Gaze (Lateral Gaze Paresis) - 0(Normal) 3. Visual Field Loss - 0(No visual loss) 4. Facial Palsy - 0(Normal) 5a. Left Arm: Motor (10-second hold) - 0(No drift) 5b. Right Arm: Motor (10-second hold) - 0(No drift) 6a. Left Leg: Motor (5-second hold - always test supine) - 0(No drift) 6b. Right Leg: Motor (5-second hold - always test supine) - 0(No drift) 7. Limb Ataxia (finger/nose \\T\\ heel/miranda - test with eyes open) - 0(Absent) 8. Sensory Loss (pinprick arms/legs/face) - 0(Normal) 9. Best Language: Aphasia (description/naming/reading) - 0(No aphasia) Initials: bam Signatures: Dispatcher [employer] EDKvng Garrison MD MD cha Rivera, Ada, [facility] mr Moses, Alexia, RN RN aa5 Elaine Joy, RN RN ko1 Lei Mccain, RN RN rs5
[2024-01-15] MEDS ORDERED: ACETAMINOPHEN 500 MG TAB PO PRN (11:47)
[2024-01-15] MEDS ORDERED: SODIUM CHLORIDE 0.9% 10ML INJ IV PRN (11:51)
--- NOTE | 2024-01-15 12:00 | P.HP ---
Certification for Inpatient Patient admitted to: Observation With expected LOS: <2 Midnights Patient will require the following post-hospital care: None Practitioner: I am a practitioner with admitting privileges, knowledge of patient current condition, hospital course, and medical plan of care. Services: Services provided to patient in accordance with Admission requirements found in Title 42 Section 412.3 of the Code of Federal Regulations <Sloane Cervantes - Last Filed: 01/15/24 11:53> Patient History Date of Service: 01/15/24 Reason for admission: CP, disequilibrium, malaise History of Present Illness: Mr. Craft is an anxious 53-year-old gentleman with a past medical history of monoclonal gammopathy of undetermined significance (MGUS) and GERD. Over the past 2 weeks, he has felt an off-balance sensation similar to coming off of a boat, malaise, fatigue, generalized heaviness over his muscles of the upper and lower extremities, and some chest heaviness/discomfort. He has a family history of hypertension, coronary artery disease, and diabetes. He purchased a blood pressure monitor fearing that his blood pressure had been elevated. He and his report his pressures usually are in the 120s/70s. Over the past 3 days he has been in the 170s to 180s systolic. He became fearful for cardiac events tod ay so presented to the emergency department. Laboratory evaluation is unremarkable. He underwent a CT of the brain, CTA of brain and neck, and brain MRI. All studies were negative except the MRI brain does show some evidence of chronic small vessel disease. He will be admitted for observation with a consult to cardiology. Home medications list reviewed: Yes (Omeprazole, vitamins/supplements) - Past Medical/Surgical History Has patient received pneumonia vaccine in the past: No Diabetic: No -: GERD -: MGUS -: Hernia (Inocencio) -: Soft tissue mass removal (Inocencio) Psychosocial/ Personal History: Lives at home with his . Sees MDA q6 mo for MGUS - Family History Father -: Heart disease, Hypertension, Diabetes Mother -: Heart disease, Hypertension, Diabetes - Social History Smoking Status: Never smoker Alcohol use: No CD- Drugs: No Caffeine use: Yes Place of Residence: Home <Sloane Cervantes - Last Filed: 01/15/24 11:53> Date of Service: 01/15/24 <Nissa Meadows - Last Filed: 01/15/24 15:45> Allergies No Known Allergies Allergy (Verified 01/15/24 14:01) Home Medications: Multivit No.40/Iron/Folat1/Dha [Prenate Essential Softgel] 1 cap PO DAILY 01/15/24 Omeprazole Magnesium [Prilosec Otc] 20 mg PO DAILY 01/15/24 Rosuvastatin [Crestor*] 10 mg PO DAILY 01/15/24 Review of Systems 10-point ROS is otherwise unremarkable General: Weakness, Malaise, As per HPI Cardiovascular: Chest Pain, Light Headedness, As per HPI Neurological: Weakness, Change in Speech, As per HPI <Sloane Cervantes - Last Filed: 01/15/24 11:53> Physical Examination - Physical Exam General: Alert, In no apparent distress, Oriented x3 HEENT: Atraumatic, Normocephalic Neck: Supple Respiratory: Clear to auscultation bilaterally, Normal air movement Cardiovascular: No edema, Normal pulses, Regular rate/rhythm, Normal S1 S2 Capillary refill: <2 Seconds Gastrointestinal: Soft and benign Musculoskeletal: No clubbing, No swelling Integumentary: No rashes Neurological: Normal speech, Normal tone, Sensation intact, Normal affect, Other (anxious) Lymphatics: No axilla or inguinal lymphadenopathy Rectal: Deferred - Studies Laboratory Data (last 24 hrs) 01/15/24 01/15/24 01/15/24 07:55 07:55 07:55 WBC 5.90 Hgb 12.9 L Hct 39.4 L Plt Count 287 PT 12.9 H INR 1.18 Sodium 138 Potassium 3.9 BUN 16 Creatinine 0.99 Glucose 102 Magnesium 2.1 Total Bilirubin 0.5 AST 16 ALT 25 Alkaline Phosphatase 100 Lipase 41 <Sloane Cervantes - Last Filed: 01/15/24 11:53> - Studies Laboratory Data (last 24 hrs) 01/15/24 01/15/24 01/15/24 07:55 07:55 07:55 WBC 5.90 Hgb 12.9 L Hct 39.4 L Plt Count 287 PT 12.9 H INR 1.18 Sodium 138 Potassium 3.9 BUN 16 Creatinine 0.99 Glucose 102 Magnesium 2.1 Total Bilirubin 0.5 AST 16 ALT 25 Alkaline Phosphatase 100 Lipase 41 <Nissa Meadows C - Last Filed: 01/15/24 15:45> Assessment and Plan - Plan chest pain tele cardiology consult ASA EC 81mg po daily Disequilibrium monitor Meclizine 25mg po q 6h Folic acid 1mg po daily HTN Monitor and trend GERD Protonix Code status: full - Advance Directives Does patient have a Living Will: No Does patient have a Durable POA for Healthcare: No <Sloane Cervantes Chepe - Last Filed: 01/15/24 11:53> - Plan Pt seen and examined. I agree with the note by the NETWORK PRICING CONSULTANT. Pt is a 53yo male with past medical history of monoclonal gammopathy of undetermined significance (MGUS) and GERD who presents with chest discomfort, generalized weakness, fatigue and malaise ever since he came off a boat about 2 weeks ago. The symptoms progressively worsened to be associated with Htn. Pt was concerned about possible cardiac event given that he has family history of hypertension, coronary artery disease, and diabetes. This made him to come to the ER for evaluation. On admission, Lab studies show wbc 5.9, Hgb 12.9, K 3.9, NA 138, Cr 0.99, troponin 3.7, BNP 24. CT head, CTA head and neck are unremarkable. MRI brain shows suggestive of chronic small vessel ischemic changes. At bedside, pt is in NAD. He reports juventino this dad of CAD at the age of 49. A/P: Chest pain: Will r/o ACS. Troponin is 3.7. Will trend troponin. Continue ANJANA therapy. Consulted Cardiology. Last NM stress was 3 years ago and it was normal. Disequilibrium: Will continue prn meclizine and Physical therapy Htn: Continue home med Code: full <Nissa Meadows C - Last Filed: 01/15/24 15:45>
[2024-01-15] MEDS ORDERED: MECLIZINE HCL 12.5 MG TAB PO PRN (12:12)
[2024-01-15 13:05] LABS: INFLUENZA A NAA NEGATIVE (NEGATIVE); SARS-COV-2 RT PCR NEGATIVE (NEGATIVE)
[2024-01-15 14:15] VITALS: BMI 28.0
--- NOTE | 2024-01-15 20:41 | CON ---
Date of Consultation: 01/15/2024 Reason For Consultation: Chest pain. History Of Present Illness: A 53-year-old male with past medical history of hypertension, dyslipidem ia, and acid reflux, presented to the emergency room with chest pain and high blood pressure and feel ing dizzy. The pain is in the retrosternal area, radiates to the shoulder along with some lightheade dness and dizziness as well as dyspnea on exertion. At present time, he has been chest pain free, bu t the pain has been coming and going, lasting for few minutes and going away. Past Medical History: As outlined above in the HPI. Medications: Refer reconciliation sheet for detailed list. Allergies: NO KNOWN DRUG ALLERGIES. Family History: No premature coronary artery disease or cancer. Social History: Does not smoke or drink. Does not use any drugs. Review of Systems: All systems reviewed and they were negative except what was mentioned in the HPI. Physical Examination: Vital Signs: Reviewed. Head and Neck: Pupils are equal, reactive to light. Intact eye movements. No JVD. No cervical lym phadenopathy. Neck is supple. Thyroid is not enlarged. Lungs: Clear to auscultation bilaterally. No rhonchi, wheezing, or crackles. No accessory muscle u se. Heart: Regular rate and rhythm. No extra sounds. Abdomen: Soft, nontender. Bowel sounds positive. No organomegaly. No masses or hernia. No rigidi ty or rebound. Extremities: No edema, clubbing, cyanosis. Intact pulses. Skin: No rash. No nodule. Neurologic: Alert, awake, oriented x3. No acute focal deficits appreciated. Investigations: First troponin is negative. BUN 16, creatinine 0.99, hemoglobin is 12.9. Assessment/recommendation: 1.Chest pain with pain coming and going even at rest. This could be unstable angina. Cardiac enzym es are negative. To admit, start on baby aspirin and on monitoring coordinator. Obtain an echocardiogram . Keep n.p.o. past midnight for possible coronary angiogram tomorrow morning. If he continues to borges ve chest pain, we will plan for it in the morning and also he does have very strong family history of coronary artery disease as premature as there is report. If he continues to have pain while he is i n the hospital, we will plan for a coronary angiogram tomorrow. Otherwise, a stress test as an outpa tient might be an option for him. If he becomes chest pain-free, trend 2 more sets of cardiac enzyme s. 2.Hypertension. Blood pressure is elevated. The patient does not have any history of hypertension. Apparently, monitor while in the hospital and start on medications if needed and obtain an echo. 3.Mild anemia. No bleeding. 4.Dizziness and lightheadedness. Put him on monitoring coordinator. Obtain echocardiogram to further ev aluate. /MATTY Voice ID: [id number] Report ID: [id number]
[2024-01-16 06:20] LABS: Absolute Eosinophils 0.2 K/uL (0-0.5); Absolute Lymphocytes (CBC) 1.6 K/uL (0.7-4.9); Absolute Monocytes 0.5 K/uL (0.1-1.3); Absolute Neutrophil 4.2 K/uL (1.8-8.0); Basophils % 0.5 % (0-1.3); Eosinophils % 2.8 % (0-4.4); Hematocrit 38.7 % (39.6-49.0); Hemoglobin 12.9 g/dL (13.6-17.9); Lymphocytes % 24.8 % (15.3-44.8); MCH 26.7 pg (27.0-35.0); MCHC 33.3 g/dL (32.0-36.0); MCV 80.2 fL (80-100); MPV 8.2 fL (7.6-11.3); Monocytes % 7.3 % (3.3-12.3); Neutrophils % 64.6 % (41.7-73.7); Platelets 284 thou/uL (152-406); RBC Red Blood Cell Count 4.83 M/uL (4.33-5.43); Red Cell Distribution Width 15.6 % (12.1-15.2)
[2024-01-16] MEDS ORDERED: NA CHLORIDE 0.9% 500 ML ONE (06:43)
[2024-01-16 06:47] LABS: Anion Gap 8.7 mEq/L (5.0-15.0); Potassium 3.7 mEq/L (3.5-5.1)
[2024-01-16 07:11] VITALS: TEMP 97.5
[2024-01-16] MEDS ORDERED: ATROPINE SULF 1 MG/10 ML SYR IV ONE (07:21)
[2024-01-16] MEDS ORDERED: HEPA 1000U/500MLS 2,000 UNIT/1,000 ML BAG IV ONE (07:21)
[2024-01-16] MEDS ORDERED: VERAPAMIL HCL 10 MG/4 ML VIAL IV ONE (07:21)
[2024-01-16] MEDS ORDERED: MIDAZOLAM HCL 2 MG/2 ML INJ ONE (07:21)
[2024-01-16] MEDS ORDERED: LIDOCAINE 1% 20 ML MDV ONE (07:21)
[2024-01-16] MEDS ORDERED: HEPARIN 10,000 UNIT/10 ML VIAL IV ONE (07:22)
[2024-01-16] MEDS ORDERED: HEPARIN 5000 UNIT/ML 1 ML VIAL ONE (07:22)
[2024-01-16] MEDS ORDERED: ASPIRIN 325 MG TAB ONE (07:22)
[2024-01-16] MEDS ORDERED: CLOPIDOGREL 75 MG TABLET ONE (07:22)
[2024-01-16] MEDS ORDERED: TICAGRELOR 90 MG TABLET PO ONE (07:22)
[2024-01-16] MEDS ORDERED: FENTANYL CITR 100 MCG/2 ML ONE (07:36)
--- NOTE | 2024-01-16 08:50 | OP ---
Date of Procedure: 01/16/2024 Surgeon: VIRGIE SANTIZO Procedures Performed: 1.Selective coronary angiogram. 2.Left heart catheterization. Indication: Unstable angina. Access: Right radial artery 6-Stateless, closed with TR band. Complications: None. Bleeding: Less than 50 mL. Total Sedation Time: 30 minutes, used fentanyl and Versed. Description Of Procedure: After risks, benefits, and symptoms explained, patient agreed to procedure and signed informed consent. The patient was brought into cardiac catheterization laboratory, prepp ed and draped in sterile fashion. Then, I accessed right radial artery using pediatric micropuncture kit, placed a 6-Stateless slender sheath and took 5-Stateless [place] 4 catheter over J-wire into the aortic root, crossed the aortic valve, measured the LVEDP. Pullback did not record any gradient. Then, en gaged the RCA, took standard views, and the left main and took standard views and catheter was remove d. Sheath was removed and TR band was placed with good hemostasis. Findings: 1.Left main is normal. 2.LAD: Large vessel is normal. Normal diagonal branches. 3.Left circumflex is normal. 4.RCA: Large, dominant, and normal. 5.Borderline elevated LVEDP between 10 and 50 mmHg. Conclusion: Normal coronary arteries. Recommendation: Search for other causes of chest pain. SR/MODL Voice ID: [id number] Report ID: [id number]
--- NOTE | 2024-01-16 09:12 | P.PN ---
Subjective Date of Service: 01/16/24 Chief Complaint: CP, disequilibrium, malaise Subjective: No new changes, Improving (still feeling off center. Headed to labeling strategist in 20min) <Nighat Cervantesy Chepe - Last Filed: 01/16/24 09:11> Date of Service: 01/16/24 <Nissa Meadows - Last Filed: 01/16/24 13:57> Review of Systems 10-point ROS is otherwise unremarkable General: As per HPI Cardiovascular: As per HPI Neurological: As per HPI <Nighat Cervantesy Chepe - Last Filed: 01/16/24 09:11> Physical Examination - Vital Signs Temperature: 97.5 F Blood Pressure: 113/96 Pulse: 77 Respirations: 15 Pulse Ox (%): 97 - Physical Exam General: Alert, In no apparent distress, Oriented x3 HEENT: Atraumatic, Normocephalic Neck: Supple Respiratory: Clear to auscultation bilaterally, Normal air movement Cardiovascular: No edema, Normal pulses, Regular rate/rhythm, Normal S1 S2 Capillary refill: <2 Seconds Gastrointestinal: Soft and benign Musculoskeletal: No clubbing, No swelling Integumentary: No rashes Neurological: Normal speech, Normal tone, Normal affect Lymphatics: No axilla or inguinal lymphadenopathy External genitalia: Deferred Rectal: Deferred <Nighat Cervantesy Chepe - Last Filed: 01/16/24 09:11> Assessment And Plan - Plan chest pain tele cardiology consult ASA EC 81mg po daily 01/15 to labeling strategist this am Disequilibrium monitor Meclizine 25mg po q 6h Folic acid 1mg po daily HTN Monitor and trend GERD Protonix Code status: full <BillySloane Chepe - Last Filed: 01/16/24 09:11> - Plan Pt seen and examined. I agree with the note by the ROAD SERVICE LOCKSMITH. Cardiology did cardiac cath which showed normal coronary artery. Continue meclizine for disequilibrium and other home meds. <Nissa Meadows - Last Filed: 01/16/24 13:57>
[2024-01-16 10:10] VITALS: O2SAT 97
[2024-01-16] MEDS: PANTOPRAZOLE 40 MG INJ IVP SCH (13:02)
[2024-01-16] MEDS: FOLIC ACID 1 MG TABLET PO SCH (13:02)
[2024-01-16] MEDS: ASPIRIN EC 81 MG TAB PO SCH (13:02)
--- NOTE | 2024-01-16 16:42 | P.DS ---
Admission Date: 01/15/24 Discharge Date: 01/16/24 Reason for Admission: CP, disequilibrium, malaise Consultations: Dr. Sim Procedures: [facility] Brief History of Present Illness: Mr. Craft is an anxious 53-year-old gentleman with a past medical history of monoclonal gammopathy of undetermined significance (MGUS) and GERD. Over the past 2 weeks, he has felt an off-balance sensation similar to coming off of a boat, malaise, fatigue, generalized heaviness over his muscles of the upper and lower extremities, and some chest heaviness/discomfort. He has a family history of hypertension, coronary artery disease, and diabetes. He purchased a blood pressure monitor fearing that his blood pressure had been elevated. He and his report his pressures usually are in the 120s/70s. Over the past 3 days he has been in the 170s to 180s systolic. He became fearful for cardiac events today so presented to the emergency department. Laboratory evaluation is unremarkable. He underwent a CT of the brain, CTA of brain and neck, and brain MRI. All studies were negative except the MRI brain does show some evidence of chronic small vessel disease. He will be admitted for observation with a consult to cardiology. Hospital Course: Finding from his left heart cath are "normal coronary arteries." <Sloane Cervantes - Last Filed: 01/16/24 16:40> Admission Date: 01/15/24 Discharge Date: 01/17/24 Hospital Course: Pt seen and examined. I agree with the note by the STAFF NURSE. Cardiac cath was unremarkable. Will continue home meds. Ok to discharge pt. <Nissa Meadows - Last Filed: 01/17/24 22:07> Disposition: ROUTINE DISCHARGE Discharge Condition: GOOD Vital Signs/Physical Exam: Temp Pulse Resp BP Pulse Ox 97.5 F 59 16 121/87 97 01/16/24 09:12 01/16/24 09:55 01/16/24 09:55 01/16/24 09:55 01/16/24 09:12 General: Alert, In no apparent distress, Oriented x3 HEENT: Atraumatic, Normocephalic Neck: Supple Respiratory: Clear to auscultation bilaterally, Normal air movement Cardiovascular: No edema, Normal pulses Capillary refill: <2 Seconds Gastrointestinal: Normal bowel sounds, Hypoactive Musculoskeletal: No clubbing, No swelling Integumentary: No rashes, No breakdown Neurological: Normal speech, Normal tone, Normal affect Lymphatics: No axilla or inguinal lymphadenopathy External genitalia: Deferred Rectal: Deferred Laboratory Data at Discharge: WBC 6.50 thou/uL (4.3-10.9) 01/16/24 05:29 Hgb 12.9 g/dL (13.6-17.9) L 01/16/24 05:29 Hct 38.7 % (39.6-49.0) L 01/16/24 05:29 Plt Count 284 thou/uL (152-406) 01/16/24 05:29 PT 12.9 SECONDS (9.5-12.5) H 01/15/24 07:55 INR 1.18 01/15/24 07:55 Sodium 140 mEq/L (136-145) 01/16/24 05:29 Potassium 3.7 mEq/L (3.5-5.1) 01/16/24 05:29 BUN 15 mg/dL (7-18) 01/16/24 05:29 Creatinine 0.96 mg/dL (0.70-1.30) 01/16/24 05:29 Glucose 107 mg/dL (74-106) H 01/16/24 05:29 Magnesium 2.1 mg/dL (1.6-2.4) 01/15/24 07:55 Total Bilirubin 0.5 mg/dL (0.2-1.0) 01/15/24 07:55 AST 16 U/L (15-37) 01/15/24 07:55 ALT 25 U/L (16-61) 01/15/24 07:55 Alkaline Phosphatase 100 U/L (45-117) 01/15/24 07:55 Triglycerides 139 mg/dL (<150) 01/16/24 05:29 Cholesterol 172 mg/dL (<200) 01/16/24 05:29 HDL Cholesterol 42 mg/dL (40-60) 01/16/24 05:29 Cholesterol/HDL Ratio 4.10 01/16/24 05:29 Lipase 41 U/L (13-75) 01/15/24 07:55 <Cervantes,Sloane Chepe - Last Filed: 01/16/24 16:40> Vital Signs/Physical Exam: Temp Pulse Resp BP Pulse Ox 97.5 F 65 15 127/74 97 01/16/24 16:00 01/16/24 16:00 01/16/24 16:00 01/16/24 16:00 01/16/24 16:00 Laboratory Data at Discharge: WBC 6.50 thou/uL (4.3-10.9) 01/16/24 05:29 Hgb 12.9 g/dL (13.6-17.9) L 01/16/24 05:29 Hct 38.7 % (39.6-49.0) L 01/16/24 05:29 Plt Count 284 thou/uL (152-406) 01/16/24 05:29 PT 12.9 SECONDS (9.5-12.5) H 01/15/24 07:55 INR 1.18 01/15/24 07:55 Sodium 140 mEq/L (136-145) 01/16/24 05:29 Potassium 3.7 mEq/L (3.5-5.1) 01/16/24 05:29 BUN 15 mg/dL (7-18) 01/16/24 05:29 Creatinine 0.96 mg/dL (0.70-1.30) 01/16/24 05:29 Glucose 107 mg/dL (74-106) H 01/16/24 05:29 Magnesium 2.1 mg/dL (1.6-2.4) 01/15/24 07:55 Total Bilirubin 0.5 mg/dL (0.2-1.0) 01/15/24 07:55 AST 16 U/L (15-37) 01/15/24 07:55 ALT 25 U/L (16-61) 01/15/24 07:55 Alkaline Phosphatase 100 U/L (45-117) 01/15/24 07:55 Triglycerides 139 mg/dL (<150) 01/16/24 05:29 Cholesterol 172 mg/dL (<200) 01/16/24 05:29 HDL Cholesterol 42 mg/dL (40-60) 01/16/24 05:29 Cholesterol/HDL Ratio 4.10 01/16/24 05:29 Lipase 41 U/L (13-75) 01/15/24 07:55 <Nissa Meadows C - Last Filed: 01/17/24 22:07> Diet: AHA Activity: Ad haritha <Sloane Cervanteslen - Last Filed: 01/16/24 16:40> <Nissa Meadows C - Last Filed: 01/17/24 22:07> Home Medications: Multivit No.40/Iron/Folat1/Dha [Prenate Essential Softgel] 1 cap PO DAILY 01/15/24 Omeprazole Magnesium [Prilosec Otc] 20 mg PO DAILY 01/15/24 Rosuvastatin [Crestor*] 10 mg PO DAILY 01/15/24 Aspirin [Aspirin EC] 81 mg PO DAILY 90 Days #90 tab 01/16/24 Meclizine HCl [Antivert*] 25 mg PO Q6H PRN 7 Days #30 tab 01/16/24 New Medications: Meclizine HCl [Antivert*] 25 mg PO Q6H PRN 7 Days #30 tab PRN Reason: Dizziness Aspirin [Aspirin EC] 81 mg PO DAILY 90 Days #90 tab Physician Discharge Instructions: Mr. Craft is a 53-year-old gentleman with a past medical history of monoclonal gammopathy of undetermined significance (MGUS) and GERD. Over the past 2 weeks, he has felt an off-balance sensation similar to coming off of a boat, malaise, fatigue, generalized heaviness over his muscles of the upper and lower extremities, and some chest heaviness/discomfort. He has a family history of hypertension, coronary artery disease, and diabetes. He purchased a blood pressure monitor fearing that his blood pressure had been elevated. He and his report his pressures usually are in the 120s/70s. Over the past 3 days he has been in the 170s to 180s systolic. He became fearful for cardiac events today so presented to the emergency department. Laboratory evaluation is unremarkable. He underwent a CT of the brain, CTA of brain and neck, and brain MRI. All studies were negative except the MRI brain does show some evidence of chronic small vessel disease. He will be admitted for observation with a consult to cardiology. Finding from his left heart cath are "normal coronary arteries." Continue ad haritha activity as tolerated. Take home meds as tolerated. Take Meclizine as needed for dizziness. Okay to DC IV and DC home Follow-up with primary care provider in 1 to 2 weeks Follow-up with cardiology in 1 to 2-weeks Please call the inpatient unit for any questions or concerns regarding hospital stay Return to the ER for worsening symptoms Followup: Remington Sim MD [ACTIVE - CAN ADMIT] - 1-2 Weeks Enrique Connolly MD [Primary Care Provider] - 1-2 Weeks
--- NOTE | 2024-01-16 17:35 | PN ---
Date of Progress Note: 01/16/2024 Subjective: Seen by bedside. Continued to have chest pain overnight on and off. Review of Systems: No active chest pain at the present time. No dysuria, polyuria, or urinary urgency. No shortness of breath. No nausea, vomiting, or diarrhea. All other systems were reviewed, they were negative. Objective: Vital Signs: Reviewed. Head and Neck: Pupils are equal, reactive to light. Intact eye movements. No JVD. No cervical lym phadenopathy. Neck is supple. Thyroid is not enlarged. Lungs: Clear to auscultation bilaterally. No rhonchi, wheezing, or crackles. No accessory muscle u se. Heart: Regular rate and rhythm. No extra sounds. Abdomen: Soft, nontender. Bowel sounds positive. No organomegaly. No masses or hernia. No rigidi ty or rebound. Extremities: No edema, clubbing, or cyanosis. Intact pulses. Skin: No rash. No nodule. Neurologic: Alert, awake, oriented x3. No acute focal deficits appreciated. Investigation: Labs were reviewed. Assessment And Recommendations: 1.Chest pain suggestive of unstable angina. Coronary angiogram did not show any significant coronar y artery disease. No further cardiac workup is needed. His ejection fraction on echo is normal. Fr om Cardiology standpoint, patient can be released, but I would recommend search for other causes of c hest pain first, specifically obtain D-dimer, if it is elevated, to obtain CT scan of the chest. 2.Hypertension. Blood pressure is controlled. Continue current management. 3.Dizziness and lightheadedness. This is resolved. Cardiology will sign off. /MATTY Voice ID: [id number] Report ID: [id number]
[2024-01-16 18:09] VITALS: BP 127/74
--- NOTE | 2024-01-18 13:35 | EKG ---
Test Date: 2024-01-15 Test Time: 07:56:17 Electronic Calibration Technician: DANIEL MEASUREMENT RESULTS: Intervals: Rate: 81 VT: 224 QRSD: 78 QT: 364 QTc: [address]: P: 56 VT: 224 QRS: 77 T: 29 INTERPRETIVE STATEMENTS: Sinus rhythm with sinus arrhythmia with 1st degree AV block Otherwise normal ECG Compared to ECG 09/07/2019 06:06:34 No significant changes Electronically Signed On 01-18-24 13:28:40 CDT by Remington Sim
== END 2024-01-16 19:40 | disposition home or self-care (01) ==
LOC: ER 07:44 → ERHOLD 11:51 → 4TH 13:31
PROVIDERS: ADMIT Hospitalist; ATTEND Hospitalist
PROC: 4A023N7 Measurement of Cardiac Sampling and Pressure, Left Heart, Percutaneous Approach (ICD-10-PCS; principal; 2024-01-15)
PROC: B2111ZZ Fluoroscopy of Multiple Coronary Arteries using Low Osmolar Contrast (ICD-10-PCS; 2024-01-15)
DX: R07.9 Chest pain, unspecified (principal); R42 Dizziness and giddiness; D47.2 Monoclonal gammopathy; D64.9 Anemia, unspecified; R53.1 Weakness; R53.81 Other malaise; R53.83 Other fatigue; R47.01 Aphasia; E78.00 Pure hypercholesterolemia, unspecified; I10 Essential (primary) hypertension; K21.9 Gastro-esophageal reflux disease without esophagitis; Z11.52 Encounter for screening for COVID-19; Z82.49 Family history of ischemic heart disease and other diseases of the circulatory system; Z83.3 Family history of diabetes mellitus
CPT/HCPCS: 96361; 93005; 85025 ×2; 80048 ×2; 36415 ×2; 83735; 85610; 80061; 85379; 80076; 84443; 81003; 83036; 84484 ×2; 83690; 83880; 0240U; 70450; 70496; 70498; 71045; 93458; 76937; 70551; 96374; 99285; C1893; Q9967; Q9966; J1644; J2001; C9113; J2250; J3010; G0378 ×5; J7040 ×2; J7030; 99152; 99153; J0461